=== PATIENT | male | born 1945 | race Caucasian/White ===

== ENCOUNTER 2016-12-19 08:24 | Day surgery (SDC) | payer MEDICARE, BC ==
[2016-12-19] MEDS ORDERED: Propofol 200 MG/20 ML SDV ONE (09:06)
[2016-12-19] MEDS ORDERED: fentaNYL 100 MCG/2 ML SDV ONE (09:06)
[2016-12-19] MEDS ORDERED: Lactated Ringers 1,000 ML IV SCH (09:45)
[2016-12-19 12:15] VITALS: BP 121/87
--- NOTE | 2016-12-20 12:30 | OR ---
DATE OF PROCEDURE: 12/19/2016 PREOPERATIVE DIAGNOSIS: History of colon polyps. POSTOPERATIVE DIAGNOSES: Diverticulosis, history of colon polyps. PROCEDURE: Colonoscopy to the cecum. SURGEON: Satish Holly MD. ANESTHESIA: IV anesthesia with monitored anesthesia care. INDICATION: This 71-year-old white male is referred for a colonoscopy. He has a history of colon polyps. His last colonoscopic exam was performed in the [facility] about 5 years ago. I counseled him for a colonoscopy with possible biopsy and/or polypectomy including risks and alternatives, and he gave his informed consent to proceed. DESCRIPTION OF PROCEDURE: The patient was placed in the left lateral decubitus position. IV anesthesia was administered by the Anesthesia Service. Time-out was held. A rectal exam was performed, which was unremarkable. The flexible video Olympus colonoscope was introduced through his anus, up his rectum, and out his colon all the way to the cecum. En route, we saw multiple left-sided diverticula. There was no bleeding or inflammation associated with any of them. Once the cecum was reached, the scope was slowly withdrawn, examining the mucosa throughout. No additional mucosal abnormalities were noted. No neoplastic lesions were seen. The scope was retroflexed in the rectum with the distal rectum appearing unremarkable. The scope was straightened and removed. He tolerated the procedure well. Satish Holly MD /[id number] MTDD
== END 2016-12-19 12:18 | disposition home or self-care (01) ==
LOC: JP.SDS 08:24
PROVIDERS: ATTEND Surgery
DX: Z12.11 Encounter for screening for malignant neoplasm of colon (principal); K57.30 Diverticulosis of large intestine without perforation or abscess without bleeding; Z86.010 Personal history of colon polyps; Z88.0 Allergy status to penicillin
CPT/HCPCS: G0105; J2704; J3010; J7120

== ENCOUNTER 2019-09-28 07:24 | Day surgery (SDC) | payer MEDICARE, OTHER ==
[~2019-09-28 07:24] MED LIST: Bupivacaine 0.5% 50 ML MDV ONE; Lidocaine 1% with EPINEPHrine 1:100,000 50 ML MDV ONE; Midazolam 1 MG/ML 2 ML SDV ONE; Propofol 200 MG/20 ML SDV ONE; fentaNYL 100 MCG/2 ML SDV ONE
[2019-09-28] MEDS ORDERED: Sodium Chloride 0.9% 1,000 ML IV SCH (08:00)
[2019-09-28] MEDS ORDERED: ceFAZolin 2 GM in Premix Bag 1 BAG IV ONE (08:00)
[2019-09-28] MEDS ORDERED: Propofol 200 MG/20 ML SDV ONE (08:47)
[2019-09-28 10:22] VITALS: BP 120/60; PULSE 61
--- NOTE | 2019-09-28 12:39 | OR ---
DATE OF PROCEDURE: 09/28/2019 SURGEON: Micky Roe MD PROCEDURES: 1. 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 2. Intermediate closure, same dimensions (72835). COMPLICATIONS: None. FREELANCE WRITER: None. ANESTHESIA: MAC/local. RISKS: Risks, benefits, alternatives, and limitations including, but not limited to infection, bleeding, and requirement for reoperation, false-positives, false-negatives, and other risks not listed here were explained to the patient, who wished to proceed. PREOPERATIVE DIAGNOSIS: Squamous cell carcinoma of back. POSTOPERATIVE DIAGNOSIS: Squamous cell carcinoma of back. PROCEDURE IN DETAIL: The patient was placed in prone position. The lesion was identified preoperatively by the patient and family. The purple nu was identified. Purple signature was identified and the elliptical incision was performed to the size as above. This was performed with a 15 blade. Electrocautery was then used to carry down to the fascial level. This was marked with a single stitch superior, double stitch left prior to removal from the body. This was then removed. Sent to pathology. Irrigation was then performed. Minimal bleeding was controlled by electrocautery. Superior and inferior flaps were then created using electrocautery. These were then further mobilized and then anastomosed with 3-0 Vicryl sutures. Two layers of 3-0 Vicryl were performed. The skin was then closed with tommie and dressings were applied. The patient tolerated the procedure well. Micky Roe MD /[id number]
== END 2019-09-28 11:04 | disposition home or self-care (01) ==
LOC: JP.SDS 07:24
PROVIDERS: ATTEND Surgery
DX: C44.529 Squamous cell carcinoma of skin of other part of trunk (principal)
CPT/HCPCS: 88305; J0690; J2250; J2704; J3010; J3490; J7030

== ENCOUNTER 2020-01-21 09:43 | Inpatient (IN) | payer MEDICARE, OTHER ==
--- NOTE | 2020-01-21 10:03 | EDM.PDOC ---
ED HPI GENERAL MEDICAL PROBLEM - General Chief Complaint: Respiratory Problem Stated Complaint: positive covid Time Seen by Provider: 01/21/20 10:00 Source of Information: Reports: Patient History Limitations: Reports: No Limitations - History of Present Illness INITIAL COMMENTS - FREE TEXT/NARRATIVE: 74-year-old, usually healthy male has been struggling with Covid symptoms for the past 2 weeks. He tested positive on January 04, he and his have been trying to "ride it out" at home and she has markedly improved but he has become weaker, more short of breath, has had some diarrhea, and has gotten to the point where he cannot get across 1 room or stand up while he is in the shower. This morning when he woke up he checked his O2 saturations and they were in the high 70s and low 80s. They did improve with some deep breaths but his 's saturations were in the 90s so he got concerned. He has a tight cough but no productive sputum, no real pain. He arrived to the emergency room extremely weak with O2 saturations 88% without O2. Onset: Gradual Duration: Week(s): (2 weeks) Associated Symptoms: Reports: Cough, Loss of Appetite, Malaise, Shortness of Breath (Especially with any activity), Weakness. Denies: Confusion, Chest Pain - Related Data Allergies Allergy/AdvReac Type Severity Reaction Status Date / Time Penicillins Allergy Rash Verified 01/21/20 09:52 Home Meds: Home Meds Cholecalciferol (Vitamin D3) [Vitamin D3] 0.025 mcg PO DAILY 12/19/16 [History] Magnesium Oxide [Magnesium] 400 mg PO DAILY 09/24/19 [History] Past Medical History HEENT History: Reports: Allergic Rhinitis, Impaired Vision Gastrointestinal History: Reports: Colon Polyp Genitourinary History: Reports: Renal Calculus Musculoskeletal History: Reports: Fracture, Other (See Below) Other Musculoskeletal History: fx clavicle as child Neurological History: Reports: Concussion, Migraines Oncologic (Cancer) History: Reports: Squamous Cell Carcinoma - Infectious Disease History Infectious Disease History: Reports: Chicken Pox - Past Surgical History GI Surgical History: Reports: Colonoscopy, Hernia, Abdominal Musculoskeletal Surgical History: Reports: Shoulder Surgery Social & Family History - Caffeine Use Caffeine Use: Reports: Coffee ED ROS GENERAL - Review of Systems Review Of Systems: See Below Constitutional: Reports: Fever, Chills, Malaise, Decreased Appetite HEENT: Denies: Throat Pain Respiratory: Reports: Shortness of Breath, Cough. Denies: Sputum Cardiovascular: Denies: Palpitations Endocrine: Reports: Fatigue (Extreme fatigue is his main complaint) GI/Abdominal: Reports: Diarrhea : Reports: No Symptoms Musculoskeletal: Reports: No Symptoms Skin: Reports: No Symptoms Neurological: Reports: Dizziness, Weakness. Denies: Headache ED EXAM, GENERAL - Physical Exam Exam: See Below Exam Limited By: No Limitations General Appearance: Alert, No Apparent Distress, Other (Patient does not look distressed but does look extremely weak, very flat affect) Eye Exam: Bilateral Eye: EOMI, PERRL Throat/Mouth: Normal Inspection Head: Atraumatic Respiratory/Chest: No Respiratory Distress, Rhonchi (Bibasilar rhonchi are he delbert, a few scattered expiratory wheezes) Cardiovascular: Regular Rate, Rhythm GI/Abdominal: Normal Bowel Sounds, Soft, Non-Tender Extremities: Normal Inspection. No: Pedal Edema Neurological: Alert, Oriented Psychiatric: Depressed Mood, Flat Affect Skin Exam: Warm, Dry Course - Vital Signs Last Recorded V/S: Last Vital Signs Temp 101.2 F H 01/21/20 13:23 Pulse 90 01/21/20 12:49 Resp 20 01/21/20 12:49 BP 130/62 01/21/20 12:49 Pulse Ox 94 L 01/21/20 13:00 - Orders/Labs/Meds Orders: Active Orders 24 hr Category Date Time Status Patient Status [ADT] Routine ADT 01/21/20 11:22 Active Ambulate [RC] QID Care 01/21/20 11:21 Active Cardiac Monitoring [RC] .As Directed Care 01/21/20 11:24 Active Intake and Output [RC] QSHIFT Care 01/21/20 11:24 Active Oxygen Therapy [RC] PRN Care 01/21/20 11:22 Active Positioning, Patient [RC] ASDIRECTED Care 01/21/20 11:26 Active Pulse Oximetry [RC] CONTINUOUS Care 01/21/20 11:24 Active Up to Chair [RC] QID Care 01/21/20 11:21 Active VTE/DVT Education [RC] Per Unit Routine Care 01/21/20 11:22 Active Verify Patient Consent Obtain [RC] ASDIRECTED Care 01/21/20 11:22 Active PT Evaluation and Treatment [CONS] Routine Cons 01/21/20 11:21 Active Regular Diet [DIET] Diet 01/21/20 Lunch Active C-REACTIVE PROTEIN [CHEM] DAILY Lab 01/22/20 11:30 Ordered C-REACTIVE PROTEIN [CHEM] DAILY Lab 01/23/20 11:30 Ordered C-REACTIVE PROTEIN [CHEM] DAILY Lab 01/24/20 11:30 Ordered C-REACTIVE PROTEIN [CHEM] DAILY Lab 01/25/20 11:30 Ordered C-REACTIVE PROTEIN [CHEM] DAILY Lab 01/26/20 11:30 Ordered CBC WITH AUTO DIFF [HEME] DAILY Lab 01/22/20 11:30 Ordered CBC WITH AUTO DIFF [HEME] DAILY Lab 01/23/20 11:30 Ordered CBC WITH AUTO DIFF [HEME] DAILY Lab 01/24/20 11:30 Ordered CBC WITH AUTO DIFF [HEME] DAILY Lab 01/25/20 11:30 Ordered CBC WITH AUTO DIFF [HEME] DAILY Lab 01/26/20 11:30 Ordered COMPREHENSIVE METABOLIC PN,CMP [CHEM] DAILY Lab 01/22/20 11:30 Ordered COMPREHENSIVE METABOLIC PN,CMP [CHEM] DAILY Lab 01/23/20 11:30 Ordered COMPREHENSIVE METABOLIC PN,CMP [CHEM] DAILY Lab 01/24/20 11:30 Ordered COMPREHENSIVE METABOLIC PN,CMP [CHEM] DAILY Lab 01/25/20 11:30 Ordered COMPREHENSIVE METABOLIC PN,CMP [CHEM] DAILY Lab 01/26/20 11:30 Ordered CULTURE BLOOD [BC] Urgent Lab 01/21/20 11:50 Received CULTURE BLOOD [BC] Urgent Lab 01/21/20 12:05 Received FERRITIN [CHEM] DAILY Lab 01/22/20 11:21 Ordered FERRITIN [CHEM] DAILY Lab 01/23/20 11:21 Ordered FERRITIN [CHEM] DAILY Lab 01/24/20 11:21 Ordered FERRITIN [CHEM] DAILY Lab 01/25/20 11:21 Ordered FERRITIN [CHEM] DAILY Lab 01/26/20 11:21 Ordered PROCALCITONIN [CHEM] DAILY Lab 01/22/20 11:21 Ordered PROCALCITONIN [CHEM] DAILY Lab 01/23/20 11:21 Ordered PROCALCITONIN [CHEM] DAILY Lab 01/24/20 11:21 Ordered PROCALCITONIN [CHEM] DAILY Lab 01/25/20 11:21 Ordered PROCALCITONIN [CHEM] DAILY Lab 01/26/20 11:21 Ordered Acetaminophen [TylenoL] Med 01/21/20 11:21 Active 650 mg PO Q4H PRN Docusate Sodium [Colace] Med 01/21/20 11:21 Active 100 mg PO BID PRN Enoxaparin [Lovenox] Med 01/21/20 11:30 Active 40 mg SUBCUT DAILY Ondansetron [Zofran ODT] Med 01/21/20 11:21 Active 4 mg PO Q6H PRN Remdesivir (Eua) [Remdesivir (EUA)] 100 mg Med 01/22/20 12:00 Active Sodium Chloride 0.9% [Normal Saline] 100 ml IV Q24H Sodium Chloride 0.9% [Normal Saline] 250 ml Med 01/21/20 11:30 Active IV ASDIRECTED dexAMETHasone [Decadron] Med 01/21/20 11:30 Active 6 mg IVPUSH DAILY Blood Culture x2 Reflex Set [OM.PC] Stat Ot 01/21/20 11:26 Ordered Isolation [COMM] Routine Oth 01/21/20 11:28 Ordered Isolation [COMM] Stat Oth 01/21/20 11:22 Ordered Resuscitation Status Routine Resus Stat 01/21/20 11:21 Ordered Medication Orders Acetaminophen (Tylenol) 650 mg PO Q4H PRN PRN Reason: Fever Greater Than 101 Last Admin: 01/21/20 13:23 Dose: 650 mg Documented by: JUICE Dexamethasone (Decadron) 6 mg IVPUSH DAILY [facility] Stop: 01/30/20 09:01 Last Admin: 01/21/20 12:05 Dose: 6 mg Documented by: OCTAVIA Docusate Sodium (Colace) 100 mg PO BID PRN PRN Reason: Constipation Enoxaparin Sodium (Lovenox) 40 mg SUBCUT DAILY [facility] Last Admin: 01/21/20 12:09 Dose: 40 mg Documented by: OCTAVIA Remdesivir 100 mg/ Sodium (Chloride) 100 mls @ 100 mls/hr IV Q24H [facility] Stop: 01/25/20 12:59 Sodium Chloride (Normal Saline) 250 mls @ 20 mls/hr IV ASDIRECTED JEAN MARIE Ondansetron HCl (Zofran Odt) 4 mg PO Q6H PRN PRN Reason: Nausea able to take PO Labs: Laboratory Tests 01/21/20 01/21/20 01/21/20 Range/Units 10:51 10:51 10:51 WBC 7.2 (4.5-11.0) K/uL RBC 5.00 (4.30-5.90) M/uL Hgb 15.3 H (12.0-15.0) g/dL Hct 45.4 (40.0-54.0) % MCV 91 (80-98) fL MCH 31 (27-31) pg MCHC 34 (32-36) % Plt Count 262 (150-400) K/uL Neut % (Auto) 81 H (36-66) % Lymph % (Auto) 5 L (24-44) % [place] % (Auto) 13 H (2-6) % Eos % (Auto) 0 L (2-4) % Baso % (Auto) 1 (0-1) % D-Dimer, Quantitative 1070.58 H (0.0-500.0) ng/mL Sodium 129 L (140-148) mmol/L Potassium 3.9 (3.6-5.2) mmol/L Chloride 93 L (100-108) mmol/L Carbon Dioxide 26 (21-32) mmol/L Anion Gap 13.9 (5.0-14.0) mmol/L BUN 16 (7-18) mg/dL Creatinine 1.2 (0.8-1.3) mg/dL Est Cr Clr Drug Dosing 56.98 mL/min Estimated GFR (MDRD) 59 L (>60) Glucose 101 (74-106) mg/dL Lactic Acid (0.4-2.0) mmol/L Calcium 8.6 (8.5-10.1) mg/dL Ferritin 2011 H (8-388) ng/ml Total Bilirubin 0.6 (0.2-1.0) mg/dL AST 94 H (15-37) U/L ALT 131 H (12-78) U/L Alkaline Phosphatase 58 (46-116) U/L C-Reactive Protein 12.29 H (0.0-0.3) mg/dL Total Protein 7.2 (6.4-8.2) g/dL Albumin 2.5 L (3.4-5.0) g/dL Globulin 4.7 H (2.3-3.5) g/dL Albumin/Globulin Ratio 0.5 L (1.2-2.2) 01/21/20 Range/Units 11:21 WBC (4.5-11.0) K/uL RBC (4.30-5.90) M/uL Hgb (12.0-15.0) g/dL Hct (40.0-54.0) % MCV (80-98) fL MCH (27-31) pg MCHC (32-36) % Plt Count (150-400) K/uL Neut % (Auto) (36-66) % Lymph % (Auto) (24-44) % [place] % (Auto) (2-6) % Eos % (Auto) (2-4) % Baso % (Auto) (0-1) % D-Dimer, Quantitative (0.0-500.0) ng/mL Sodium (140-148) mmol/L Potassium (3.6-5.2) mmol/L Chloride (100-108) mmol/L Carbon Dioxide (21-32) mmol/L Anion Gap (5.0-14.0) mmol/L BUN (7-18) mg/dL Creatinine (0.8-1.3) mg/dL Est Cr Clr Drug Dosing mL/min Estimated GFR (MDRD) (>60) Glucose (74-106) mg/dL Lactic Acid 1.4 (0.4-2.0) mmol/L Calcium (8.5-10.1) mg/dL Ferritin (8-388) ng/ml Total Bilirubin (0.2-1.0) mg/dL AST (15-37) U/L ALT (12-78) U/L Alkaline Phosphatase (46-116) U/L C-Reactive Protein (0.0-0.3) mg/dL Total Protein (6.4-8.2) g/dL Albumin (3.4-5.0) g/dL Globulin (2.3-3.5) g/dL Albumin/Globulin Ratio (1.2-2.2) Meds: Medications Generic Name Dose Route Start Last Admin Trade Name Freq PRN Reason Stop Dose Admin Acetaminophen 650 mg 01/21/20 11:21 01/21/20 13:23 Tylenol PO 650 mg Q4H PRN Administration Fever Greater Than 101 Dexamethasone 6 mg 01/21/20 11:30 01/21/20 12:05 Decadron IVPUSH 01/30/20 09:01 6 mg DAILY JEAN MARIE Administration Docusate Sodium 100 mg 01/21/20 11:21 Colace PO BID PRN Constipation Enoxaparin Sodium 40 mg 01/21/20 11:30 01/21/20 12:09 Lovenox SUBCUT 40 mg DAILY JEAN MARIE Administration Remdesivir 100 mg/ Sodium 100 mls @ 100 mls/hr 01/22/20 12:00 Chloride IV 01/25/20 12:59 Q24H JEAN MARIE Sodium Chloride 250 mls @ 20 mls/hr 01/21/20 11:30 Normal Saline IV ASDIRECTED JEAN MARIE Ondansetron HCl 4 mg 01/21/20 11:21 Zofran Odt PO Q6H PRN Nausea able to take PO Discontinued Medications Generic Name Dose Route Start Last Admin Trade Name Freq PRN Reason Stop Dose Admin Diphenhydramine HCl 25 mg 01/21/20 11:21 Benadryl IVPUSH 01/21/20 11:22 ONCALL ONE Remdesivir 200 mg/ Sodium 250 mls @ 250 mls/hr 01/21/20 12:00 01/21/20 12:12 Chloride IV 01/21/20 12:59 250 mls/hr ONETIME ONE Administration - Re-Assessments/Exams Free Text/Narrative Re-Assessment/Exam: 01/21/20 10:20 Patient has known Covid with worsening symptoms and now is becoming hypoxic at rest. CBC, CMP, CRP, D-dimer and ferritin were obtained along with a 1 view chest x-ray. 01/21/20 11:24 Chest x-ray shows bilateral basilar infiltrates, white count and hemoglobin are normal. The rest of his left still pending, I discussed his case with Dr. Quispe and he agreed to admit him onto the Covid unit and will order treatment according to lab results. Departure - Departure Time of Disposition: 12:50 Disposition: Admitted As Inpatient 67 Clinical Impression: Pneumonia due to COVID-19 virus, Weakness generalized, Hypoxemia - Discharge Information Sepsis Event Note (ED) - Focused Exam Vital Signs: Vital Signs Temp Pulse Resp BP Pulse Ox 01/21/20 10:13 101 H 94 L 01/21/20 10:04 101 H 89 L 01/21/20 09:59 100.6 F 100 20 137/70 92 L
[2020-01-21] MEDS ORDERED: Docusate Sodium 100 MG Cap PO PRN (11:21)
[2020-01-21] MEDS ORDERED: Ondansetron 4 MG Tab.DIS PO PRN (11:21)
[2020-01-21] MEDS ORDERED: diphenhydrAMINE 50 MG/ML SDV IVPUSH ONE ×2 (11:21→15:30)
--- NOTE | 2020-01-21 11:21 | CR ---
CHEST: Upright AP 01/31/2020 at 10:40 AM CLINICAL HISTORY:Worsening covid Symptoms COMPARISON:None FINDINGS: There is some vague patchy infiltrate in both lower lung crespo. Heart size and pulmonary vascularity are normal. There are no effusions Impression: Vague opacification in both lower lung crespo is suspect for pneumonitis.
[2020-01-21] MEDS ORDERED: Sodium Chloride 0.9% 250 ML IV SCH (11:30)
[2020-01-21] MEDS: Dexamethasone 4 MG/ML SDV IVPUSH SCH (12:05)
[2020-01-21] MEDS: Enoxaparin 40 MG/0.4 ML Syringe SUBCUT SCH (12:09)
[2020-01-21] MEDS: Acetaminophen 325 MG Tab PO PRN (13:23)
--- NOTE | 2020-01-21 13:44 | PCM.HP.2 ---
H&P History of Present Illness - General Date of Service: 01/21/20 Admit Problem/Dx: Admission Diagnosis/Problem 1. Acute COVID 19 PNA 2. Acute respiratory failure 3. Weakness 4. Fever Source of Information: Patient History Limitations: Reports: No Limitations - History of Present Illness Initial Comments - Free Text/Narative: Praveen Whalen is a 74 yo male admitted to [facility] service on 21 January 2020 for profound weakness in the setting of acute COVID 19 infection. The patient and his , both, have been diagnosed and have quarantined themselves over the past 14 days. While his has improved substantially, the patient himself has yet to do so. He has, rather, become progressively weaker, more dyspneic, and has had considerable cough with increased respiratory effort or talking. He has had fevers as high as 102.9 F. He has no other medical issues [employer] that are noted. No history of HTN, CAD, COPD, DM, obesity are noted. The patient does note, in addition to the above, some occasional lo ose stool as well as loss of taste and/or smell. No other issues are noted at time of admission. - Related Data Allergies/Adverse Reactions: Allergies Allergy/AdvReac Type Severity Reaction Status Date / Time Penicillins Allergy Rash Verified 01/21/20 09:52 Home Medications: Home Meds Cholecalciferol (Vitamin D3) [Vitamin D3] 0.025 mcg PO DAILY 12/19/16 [History] Magnesium Oxide [Magnesium] 400 mg PO DAILY 09/24/19 [History] Past Medical History HEENT History: Reports: Allergic Rhinitis, Impaired Vision Gastrointestinal History: Reports: Colon Polyp Genitourinary History: Reports: Renal Calculus Musculoskeletal History: Reports: Fracture, Other (See Below) Other Musculoskeletal History: fx clavicle as child Neurological History: Reports: Concussion, Migraines Oncologic (Cancer) History: Reports: Squamous Cell Carcinoma - Infectious Disease History Infectious Disease History: Reports: Chicken Pox - Past Surgical History GI Surgical History: Reports: Colonoscopy, Hernia, Abdominal Musculoskeletal Surgical History: Reports: Shoulder Surgery Social & Family History - Tobacco Use Tobacco Use Status *Q: Never Tobacco User Second Hand Smoke Exposure: No - Caffeine Use Caffeine Use: Reports: Coffee - Recreational Drug Use Recreational Drug Use: No H&P Review of Systems - Review of Systems: Review Of Systems: Comprehensive ROS is negative, except as noted in HPI. Exam - Exam Exam: See Below - Vital Signs Vital Signs: Last Vital Signs Temp 101.2 F H 01/21/20 13:23 Pulse 90 01/21/20 12:49 Resp 20 01/21/20 12:49 BP 130/62 01/21/20 12:49 Pulse Ox 94 L 01/21/20 13:00 Weight: 167 lb - Exam Quality Assessment: Supplemental Oxygen, DVT Prophylaxis. No: Central Line/PICC, Urinary Catheter General: Alert, Oriented, Cooperative, Moderate Distress HEENT: PERRLA, EOMI Lungs: Crackles (Noted bilaterally L>>R with crackles noted in the RLL, RML, LLL and about half of the JESUS) Cardiovascular: Regular Rate, Regular Rhythm, Normal S1, Normal S2. No: Systolic Murmur, Diastolic Murmur GI/Abdominal Exam: Normal Bowel Sounds, Soft, Non-Tender, No Distention, No Abnormal Bruit, No Mass Back Exam: Normal Inspection Extremities: Normal Inspection, Normal Range of Motion, Non-Tender, No Pedal Edema Peripheral Pulses: 4+: Posterior Tibial (L), Posterior Tibial (R), Dorsalis Pedis (L), Dorsalis Pedis (R) Skin: Warm, Dry, Intact Neurological: Cranial Nerves Intact, Reflexes Equal Bilateral, Strength Equal Bilateral, Normal Speech, Normal Tone, Sensation Intact Neuro Extensive - Mental Status: Alert, Oriented x3, Normal Mood/Affect, Normal Cognition, Memory Intact Neuro Extensive - Motor, Sensory, Reflexes: CN II-XII Intact, Normal Reflexes DTR: 2+: Patella (L), Patella (R) Psychiatric: Alert, Normal Affect, Normal Mood - Patient Data Lab Results Last 24 hrs: Laboratory Results - last 24 hr 01/21/20 01/21/20 01/21/20 Range/Units 10:51 10:51 10:51 WBC 7.2 (4.5-11.0) K/uL RBC 5.00 (4.30-5.90) M/uL Hgb 15.3 H (12.0-15.0) g/dL Hct 45.4 (40.0-54.0) % MCV 91 (80-98) fL MCH 31 (27-31) pg MCHC 34 (32-36) % Plt Count 262 (150-400) K/uL Neut % (Auto) 81 H (36-66) % Lymph % (Auto) 5 L (24-44) % [place] % (Auto) 13 H (2-6) % Eos % (Auto) 0 L (2-4) % Baso % (Auto) 1 (0-1) % D-Dimer, Quantitative 1070.58 H (0.0-500.0) ng/mL Sodium 129 L (140-148) mmol/L Potassium 3.9 (3.6-5.2) mmol/L Chloride 93 L (100-108) mmol/L Carbon Dioxide 26 (21-32) mmol/L Anion Gap 13.9 (5.0-14.0) mmol/L BUN 16 (7-18) mg/dL Creatinine 1.2 (0.8-1.3) mg/dL Est Cr Clr Drug Dosing 56.98 mL/min Estimated GFR (MDRD) 59 L (>60) Glucose 101 (74-106) mg/dL Lactic Acid (0.4-2.0) mmol/L Calcium 8.6 (8.5-10.1) mg/dL Ferritin 2011 H (8-388) ng/ml Total Bilirubin 0.6 (0.2-1.0) mg/dL AST 94 H (15-37) U/L ALT 131 H (12-78) U/L Alkaline Phosphatase 58 (46-116) U/L C-Reactive Protein 12.29 H (0.0-0.3) mg/dL Total Protein 7.2 (6.4-8.2) g/dL Albumin 2.5 L (3.4-5.0) g/dL Globulin 4.7 H (2.3-3.5) g/dL Albumin/Globulin Ratio 0.5 L (1.2-2.2) 01/21/20 Range/Units 11:21 WBC (4.5-11.0) K/uL RBC (4.30-5.90) M/uL Hgb (12.0-15.0) g/dL Hct (40.0-54.0) % MCV (80-98) fL MCH (27-31) pg MCHC (32-36) % Plt Count (150-400) K/uL Neut % (Auto) (36-66) % Lymph % (Auto) (24-44) % [place] % (Auto) (2-6) % Eos % (Auto) (2-4) % Baso % (Auto) (0-1) % D-Dimer, Quantitative (0.0-500.0) ng/mL Sodium (140-148) mmol/L Potassium (3.6-5.2) mmol/L Chloride (100-108) mmol/L Carbon Dioxide (21-32) mmol/L Anion Gap (5.0-14.0) mmol/L BUN (7-18) mg/dL Creatinine (0.8-1.3) mg/dL Est Cr Clr Drug Dosing mL/min Estimated GFR (MDRD) (>60) Glucose (74-106) mg/dL Lactic Acid 1.4 (0.4-2.0) mmol/L Calcium (8.5-10.1) mg/dL Ferritin (8-388) ng/ml Total Bilirubin (0.2-1.0) mg/dL AST (15-37) U/L ALT (12-78) U/L Alkaline Phosphatase (46-116) U/L C-Reactive Protein (0.0-0.3) mg/dL Total Protein (6.4-8.2) g/dL Albumin (3.4-5.0) g/dL Globulin (2.3-3.5) g/dL Albumin/Globulin Ratio (1.2-2.2) Result Diagrams: 01/21/20 10:51 01/21/20 10:51 Joon Results Last 24 hrs: Microbiology 01/21/20 12:50 Influenza Type A Antigen Screen - Final Nasopharyngeal Swab - Nare, Unspecified NEGATIVE INFLUENZA A VIRUS AG REFERENCE RANGE: NEGATIVE Influenza Type B Antigen Screen - Final NEGATIVE INFLUENZA B VIRUS AG REFERENCE RANGE: NEGATIVE Sepsis Event Note - Evaluation Sepsis Screening Result: Possible Sepsis Risk - Focused Exam Vital Signs: Vital Signs Temp Temp Pulse Resp BP Pulse Ox 01/21/20 13:23 101.2 F H 01/21/20 13:00 94 L 01/21/20 12:49 101.2 F H 90 20 130/62 92 L 01/21/20 12:05 97 121/67 01/21/20 11:32 98 128/56 L 94 L 01/21/20 10:13 101 H 94 L 01/21/20 10:04 101 H 89 L 01/21/20 09:59 100.6 F 100 20 137/70 92 L Problem List Initiated/Reviewed/Updated: Yes Orders Last 24hrs: Active Orders 24 hr Category Date Time Status Patient Status [ADT] Routine ADT 01/21/20 11:22 Active Patient Status [ADT] Routine ADT 01/21/20 11:23 Active Ambulate [RC] QID Care 01/21/20 11:21 Active Cardiac Monitoring [RC] .As Directed Care 01/21/20 11:24 Active Intake and Output [RC] QSHIFT Care 01/21/20 11:24 Active Oxygen Therapy [RC] PRN Care 01/21/20 11:22 Active Positioning, Patient [RC] ASDIRECTED Care 01/21/20 11:26 Active Pulse Oximetry [RC] CONTINUOUS Care 01/21/20 11:24 Active Up to Chair [RC] QID Care 01/21/20 11:21 Active VTE/DVT Education [RC] Per Unit Routine Care 01/21/20 11:22 Active Verify Patient Consent Obtain [RC] ASDIRECTED Care 01/21/20 11:22 Active PT Evaluation and Treatment [CONS] Routine Cons 01/21/20 11:21 Active Regular Diet [DIET] Diet 01/21/20 Lunch Active C-REACTIVE PROTEIN [CHEM] DAILY Lab 01/22/20 11:30 Ordered C-REACTIVE PROTEIN [CHEM] DAILY Lab 01/23/20 11:30 Ordered C-REACTIVE PROTEIN [CHEM] DAILY Lab 01/24/20 11:30 Ordered C-REACTIVE PROTEIN [CHEM] DAILY Lab 01/25/20 11:30 Ordered C-REACTIVE PROTEIN [CHEM] DAILY Lab 01/26/20 11:30 Ordered CBC WITH AUTO DIFF [HEME] DAILY Lab 01/22/20 11:30 Ordered CBC WITH AUTO DIFF [HEME] DAILY Lab 01/23/20 11:30 Ordered CBC WITH AUTO DIFF [HEME] DAILY Lab 01/24/20 11:30 Ordered CBC WITH AUTO DIFF [HEME] DAILY Lab 01/25/20 11:30 Ordered CBC WITH AUTO DIFF [HEME] DAILY Lab 01/26/20 11:30 Ordered COMPREHENSIVE METABOLIC PN,CMP [CHEM] DAILY Lab 01/22/20 11:30 Ordered COMPREHENSIVE METABOLIC PN,CMP [CHEM] DAILY Lab 01/23/20 11:30 Ordered COMPREHENSIVE METABOLIC PN,CMP [CHEM] DAILY Lab 01/24/20 11:30 Ordered COMPREHENSIVE METABOLIC PN,CMP [CHEM] DAILY Lab 01/25/20 11:30 Ordered COMPREHENSIVE METABOLIC PN,CMP [CHEM] DAILY Lab 01/26/20 11:30 Ordered CULTURE BLOOD [BC] Urgent Lab 01/21/20 11:50 Received CULTURE BLOOD [BC] Urgent Lab 01/21/20 12:05 Received FERRITIN [CHEM] DAILY Lab 01/22/20 11:21 Ordered FERRITIN [CHEM] DAILY Lab 01/23/20 11:21 Ordered FERRITIN [CHEM] DAILY Lab 01/24/20 11:21 Ordered FERRITIN [CHEM] DAILY Lab 01/25/20 11:21 Ordered FERRITIN [CHEM] DAILY Lab 01/26/20 11:21 Ordered PROCALCITONIN [CHEM] DAILY Lab 01/22/20 11:21 Ordered PROCALCITONIN [CHEM] DAILY Lab 01/23/20 11:21 Ordered PROCALCITONIN [CHEM] DAILY Lab 01/24/20 11:21 Ordered PROCALCITONIN [CHEM] DAILY Lab 01/25/20 11:21 Ordered PROCALCITONIN [CHEM] DAILY Lab 01/26/20 11:21 Ordered Acetaminophen [TylenoL] Med 01/21/20 11:21 Active 650 mg PO Q4H PRN Docusate Sodium [Colace] Med 01/21/20 11:21 Active 100 mg PO BID PRN Enoxaparin [Lovenox] Med 01/21/20 11:30 Active 40 mg SUBCUT DAILY Ondansetron [Zofran ODT] Med 01/21/20 11:21 Active 4 mg PO Q6H PRN Remdesivir (Eua) [Remdesivir (EUA)] 100 mg Med 01/22/20 12:00 Active Sodium Chloride 0.9% [Normal Saline] 100 ml IV Q24H Sodium Chloride 0.9% [Normal Saline] 250 ml Med 01/21/20 11:30 Active IV ASDIRECTED dexAMETHasone [Decadron] Med 01/21/20 11:30 Active 6 mg IVPUSH DAILY Blood Culture x2 Reflex Set [OM.PC] Stat Oth 01/21/20 11:26 Ordered Isolation [COMM] Routine Oth 01/21/20 11:28 Ordered Isolation [COMM] Stat Oth 01/21/20 11:22 Ordered Resuscitation Status Routine Resus Stat 01/21/20 11:21 Ordered Medication Orders Acetaminophen (Tylenol) 650 mg PO Q4H PRN PRN Reason: Fever Greater Than 101 Last Admin: 01/21/20 13:23 Dose: 650 mg Documented by: JUICE Dexamethasone (Decadron) 6 mg IVPUSH DAILY [facility] Stop: 01/30/20 09:01 Last Admin: 01/21/20 12:05 Dose: 6 mg Documented by: OCTAVIA Docusate Sodium (Colace) 100 mg PO BID PRN PRN Reason: Constipation Enoxaparin Sodium (Lovenox) 40 mg SUBCUT DAILY [facility] Last Admin: 01/21/20 12:09 Dose: 40 mg Documented by: OCTAVIA Remdesivir 100 mg/ Sodium (Chloride) 100 mls @ 100 mls/hr IV Q24H [facility] Stop: 01/25/20 12:59 Sodium Chloride (Normal Saline) 250 mls @ 20 mls/hr IV ASDIRECTED [facility] Ondansetron HCl (Zofran Odt) 4 mg PO Q6H PRN PRN Reason: Nausea able to take PO Assessment/Plan Comment:: Assessment and Plan: 1. HEENT Patient has no active issues. The noted anosmia and loss of taste are likely c/w the COVID 19 disease course. 2. Cardiac No prior history of cardiac issue noted 3. Respiratory Acute respiratory failure Patient presented with dyspnea, hypoxia requiring supplemental oxygen. The patient has responded reasonably well to 1.5-2L NC oxygen. He continues to be dyspneic and has a significant cough. COVID 19 PNA Patient has lab proved COVID 19 and symptomatically presents as such. Patient is a FULL CODE but does not wish to be kept alive indefinitely if he decompensates and requires intubation. We did obtain consents for Remdesivir, convalescent plasma -Dexamethasone 6 mg IV q day x 5 days (day 1) -Remdesivir 200 mg load followed by 100 mg daily infusion (loaded today - day 03/22) -Convalescent serum 1 unit daily (Day 1) -Daily CBC, CMP, CRP, Ferritin, D-dimer, procalcitonin -Will start IV atbx for CAP coverage as well (orders to follow) -Oxygen to keep SpO2 between 90-96% -BCx pending -Discussed contingency plan for transfer if patient deteriorates. 4. Renal/F/E/N Patient stable. Caution with IV fluid loads. Advance po as tolerated -Daily I/O -Caution with fluids -ADAT 5. Gastrointestinal No issues but for intermittent loose stools likely d/t COVID sxs 6. Neuromusculoskeletal Notes profound, generalized weakness which I think is likely d/t COVID 19 -PT/OT -Case management to begin placement process 7. Psychiatric/Mental Health No active issues 8. Infectious Disease See above Disposition: Likely to TCU for acute rehab Enrique Quispe M.D. Hospitalist 21 January 2020 - Mortality Measure Prognosis:: Good
[2020-01-22] MEDS ORDERED: LORazepam 0.5 MG Tab PO PRN (01:07)
[2020-01-22] MEDS: Melatonin 3 MG Tab PO PRN (01:31)
[2020-01-22] MEDS: Enoxaparin 40 MG/0.4 ML Syringe SUBCUT SCH (09:28)
[2020-01-22] MEDS: Dexamethasone 4 MG/ML SDV IVPUSH SCH (09:29)
[2020-01-22] MEDS: REMDESIVIR (EUA) 100 MG in Sodium Chloride 0.9% 100 ML IV SCH (12:32)
--- NOTE | 2020-01-22 14:40 | PCM.PN ---
- General Info Date of Service: 01/22/20 Admission Dx/Problem (Free Text): 1. Hypoxia 2. Bilateral PNA 3. Acute COVID 19 infection Subjective Update: [facility] Patient now requiring 6 L NC up from 1.5-2L on day of admission Patient states he is subjectively feeling better. No other concerns are elaborated from RN team Functional Status: Reports: Pain Controlled, Tolerating Diet - Review of Systems General: Reports: No Symptoms HEENT: Reports: No Symptoms Pulmonary: Reports: No Symptoms Cardiovascular: Reports: No Symptoms Gastrointestinal: Reports: No Symptoms - Patient Data Vitals - Most Recent: Last Vital Signs Temp 95.6 F L 01/22/20 12:29 Pulse 82 01/22/20 12:29 Resp 18 01/22/20 12:29 BP 117/73 01/22/20 12:29 Pulse Ox 94 L 01/22/20 13:31 Weight - Most Recent: 167 lb 0.002 oz I&O - Last 24 Hours: Intake & Output 01/21/20 01/22/20 01/22/20 22:59 06:59 14:59 Intake Total 30 934 670 Output Total 700 Balance -670 934 670 Lab Results Last 24 Hours: Laboratory Results - last 24 hr 01/21/20 01/22/20 01/22/20 Range/Units 13:49 06:09 06:09 WBC (4.5-11.0) K/uL RBC (4.30-5.90) M/uL Hgb (12.0-15.0) g/dL Hct (40.0-54.0) % MCV (80-98) fL MCH (27-31) pg MCHC (32-36) % Plt Count (150-400) K/uL Neut % (Auto) (36-66) % Lymph % (Auto) (24-44) % [place] % (Auto) (2-6) % Eos % (Auto) (2-4) % Baso % (Auto) (0-1) % Sodium (140-148) mmol/L Potassium (3.6-5.2) mmol/L Chloride (100-108) mmol/L Carbon Dioxide (21-32) mmol/L Anion Gap (5.0-14.0) mmol/L BUN (7-18) mg/dL Creatinine (0.8-1.3) mg/dL Est Cr Clr Drug Dosing mL/min Estimated GFR (MDRD) (>60) Glucose (74-106) mg/dL Calcium (8.5-10.1) mg/dL Ferritin 2240 H (8-388) ng/ml Total Bilirubin (0.2-1.0) mg/dL AST (15-37) U/L ALT (12-78) U/L Alkaline Phosphatase (46-116) U/L C-Reactive Protein (0.0-0.3) mg/dL Total Protein (6.4-8.2) g/dL Albumin (3.4-5.0) g/dL Globulin (2.3-3.5) g/dL Albumin/Globulin Ratio (1.2-2.2) Procalcitonin 0.18 ng/mL Blood Type O POSITIVE 01/22/20 01/22/20 Range/Units 06:09 06:09 WBC 6.1 (4.5-11.0) K/uL RBC 4.55 (4.30-5.90) M/uL Hgb 14.1 (12.0-15.0) g/dL Hct 41.4 (40.0-54.0) % MCV 91 (80-98) fL MCH 31 (27-31) pg MCHC 34 (32-36) % Plt Count 298 (150-400) K/uL Neut % (Auto) 74 H (36-66) % Lymph % (Auto) 9 L (24-44) % [place] % (Auto) 17 H (2-6) % Eos % (Auto) 0 L (2-4) % Baso % (Auto) 0 (0-1) % Sodium 134 L (140-148) mmol/L Potassium 3.7 (3.6-5.2) mmol/L Chloride 99 L (100-108) mmol/L Carbon Dioxide 26 (21-32) mmol/L Anion Gap 12.7 (5.0-14.0) mmol/L BUN 22 H (7-18) mg/dL Creatinine 1.0 (0.8-1.3) mg/dL Est Cr Clr Drug Dosing 70.07 mL/min Estimated GFR (MDRD) > 60 (>60) Glucose 120 H (74-106) mg/dL Calcium 8.4 L (8.5-10.1) mg/dL Ferritin (8-388) ng/ml Total Bilirubin 0.4 (0.2-1.0) mg/dL AST 105 H (15-37) U/L ALT 176 H (12-78) U/L Alkaline Phosphatase 57 (46-116) U/L C-Reactive Protein 10.18 H (0.0-0.3) mg/dL Total Protein 6.6 (6.4-8.2) g/dL Albumin 2.3 L (3.4-5.0) g/dL Globulin 4.3 H (2.3-3.5) g/dL Albumin/Globulin Ratio 0.5 L (1.2-2.2) Procalcitonin ng/mL Blood Type Joon Results Last 24 Hours: Microbiology 01/21/20 11:50 Aerobic Blood Culture - Preliminary Blood - Arm, Right NO GROWTH AFTER 1 DAY Anaerobic Blood Culture - Preliminary NO GROWTH AFTER 1 DAY 01/21/20 12:05 Aerobic Blood Culture - Preliminary Blood - Venous - Iv Start NO GROWTH AFTER 1 DAY Anaerobic Blood Culture - Preliminary NO GROWTH AFTER 1 DAY 01/21/20 12:50 Influenza Type A Antigen Screen - Final Nasopharyngeal Swab - Nare, Unspecified NEGATIVE INFLUENZA A VIRUS AG REFERENCE RANGE: NEGATIVE Influenza Type B Antigen Screen - Final NEGATIVE INFLUENZA B VIRUS AG REFERENCE RANGE: NEGATIVE Med Orders - Current: Current Medications Acetaminophen (Tylenol) 650 mg PO Q4H PRN PRN Reason: Fever Greater Than 101 Last Admin: 01/21/20 13:23 Dose: 650 mg Documented by: Albuterol (Ventolin Hfa) 0 gm INH Q2H PRN PRN Reason: Shortness of Breath Dexamethasone (Decadron) 6 mg IVPUSH DAILY [facility] Stop: 01/30/20 09:01 Last Admin: 01/22/20 09:29 Dose: 6 mg Documented by: Docusate Sodium (Colace) 100 mg PO BID PRN PRN Reason: Constipation Enoxaparin Sodium (Lovenox) 40 mg SUBCUT DAILY [facility] Last Admin: 01/22/20 09:28 Dose: 40 mg Documented by: Remdesivir 100 mg/ Sodium (Chloride) 100 mls @ 100 mls/hr IV Q24H [facility] Stop: 01/25/20 12:59 Last Admin: 01/22/20 12:32 Dose: 100 mls/hr Documented by: Sodium Chloride (Normal Saline) 250 mls @ 20 mls/hr IV ASDIRECTED JEAN MARIE Last Admin: 01/21/20 18:11 Dose: 20 mls/hr Documented by: Lorazepam (Ativan) 0.5 mg PO Q4H PRN PRN Reason: Anxiety Melatonin (Melatonin) 6 mg PO BEDTIME PRN PRN Reason: Sleep Last Admin: 01/22/20 01:31 Dose: 6 mg Documented by: Ondansetron HCl (Zofran Odt) 4 mg PO Q6H PRN PRN Reason: Nausea able to take PO Discontinued Medications Diphenhydramine HCl (Benadryl) 25 mg IVPUSH [facility] Stop: 01/21/20 15:31 Last Admin: 01/21/20 15:33 Dose: 25 mg Documented by: Remdesivir 200 mg/ Sodium (Chloride) 250 mls @ 250 mls/hr IV ONETIME ONE Stop: 01/21/20 12:59 Last Admin: 01/21/20 12:12 Dose: 250 mls/hr Documented by: - Exam Quality Assessment: Supplemental Oxygen, DVT Prophylaxis General: Alert, Oriented, Cooperative, No Acute Distress Lungs: Normal Respiratory Effort, Crackles (Curiously the patient's lungs are slightly improved despite increased oxygen needs). No: Clear to Auscultation Cardiovascular: Regular Rate, Regular Rhythm, No Murmurs GI/Abdominal Exam: Normal Bowel Sounds, No Distention Sepsis Event Note - Evaluation Sepsis Screening Result: No Definite Risk - Focused Exam Vital Signs: Vital Signs Temp Pulse Resp BP Pulse Ox 01/22/20 13:31 94 L 01/22/20 12:29 95.6 F L 82 18 117/73 93 L 01/22/20 07:26 92 L 01/22/20 07:00 96.6 F L 71 18 115/64 92 L 01/22/20 03:04 98.3 F 70 20 116/59 L 94 L 01/22/20 02:45 91 L 01/22/20 02:38 89 L - Problem List Review Problem List Initiated/Reviewed/Updated: Yes - My Orders Last 24 Hours: My Active Orders 01/21/20 13:49 ABO/RH TYPE [BBK] Routine FRESH FROZEN PLASMA [BBK] DAILY PATIENT RETYPE [BBK] Routine 01/21/20 13:50 Transfuse Fresh Frozen Plasma [COMM] DAILY 01/22/20 12:00 Remdesivir (Eua) [Remdesivir (EUA)] 100 mg Sodium Chloride 0.9% [Normal Saline] 100 ml IV Q24H 01/22/20 13:50 Transfuse Fresh Frozen Plasma [COMM] DAILY 01/23/20 11:21 FERRITIN [CHEM] DAILY PROCALCITONIN [CHEM] DAILY 01/23/20 11:30 C-REACTIVE PROTEIN [CHEM] DAILY CBC WITH AUTO DIFF [HEME] DAILY COMPREHENSIVE METABOLIC PN,CMP [CHEM] DAILY 01/23/20 13:49 FRESH FROZEN PLASMA [BBK] DAILY 01/23/20 13:50 Transfuse Fresh Frozen Plasma [COMM] DAILY 01/24/20 11:21 FERRITIN [CHEM] DAILY PROCALCITONIN [CHEM] DAILY 01/24/20 11:30 C-REACTIVE PROTEIN [CHEM] DAILY CBC WITH AUTO DIFF [HEME] DAILY COMPREHENSIVE METABOLIC PN,CMP [CHEM] DAILY 01/24/20 13:49 FRESH FROZEN PLASMA [BBK] DAILY 01/24/20 13:50 Transfuse Fresh Frozen Plasma [COMM] DAILY 01/25/20 11:21 FERRITIN [CHEM] DAILY PROCALCITONIN [CHEM] DAILY 01/25/20 11:30 C-REACTIVE PROTEIN [CHEM] DAILY CBC WITH AUTO DIFF [HEME] DAILY COMPREHENSIVE METABOLIC PN,CMP [CHEM] DAILY 01/25/20 13:49 FRESH FROZEN PLASMA [BBK] DAILY 01/25/20 13:50 Transfuse Fresh Frozen Plasma [COMM] DAILY 01/26/20 11:21 FERRITIN [CHEM] DAILY PROCALCITONIN [CHEM] DAILY 01/26/20 11:30 C-REACTIVE PROTEIN [CHEM] DAILY CBC WITH AUTO DIFF [HEME] DAILY COMPREHENSIVE METABOLIC PN,CMP [CHEM] DAILY - Plan Plan:: Assessment and Plan: 1. HEENT Patient has no active issues. The noted anosmia and loss of taste are likely c/w the COVID 19 disease course. 2. Cardiac No prior history of cardiac issue noted 3. Respiratory Acute respiratory failure Patient presented with dyspnea, hypoxia requiring supplemental oxygen. The patient has responded reasonably well to 1.5-2L NC oxygen. He continues to be dyspneic and has a significant cough. As of 01/22/2020 patient now needing 6 L NC, but objectively lungs are marginally better today COVID 19 PNA Patient has lab proved COVID 19 and symptomatically presents as such. Patient is a FULL CODE but does not wish to be kept alive indefinitely if he decompensates and requires intubation. We did obtain consents for Remdesivir, convalescent plasma -Dexamethasone 6 mg IV q day x 5 days (day 04/22) -Remdesivir 200 mg load followed by 100 mg daily infusion (loaded today - day 04/22) -Convalescent serum 1 unit daily (Day 2) -Daily CBC, CMP, CRP, Ferritin, D-dimer, procalcitonin -Will start IV atbx for CAP coverage as well (orders to follow) -Oxygen to keep SpO2 between 90-96% -BCx pending but Negative thus far -Discussed contingency plan for transfer if patient deteriorates. 4. Renal/F/E/N Patient stable. Caution with IV fluid loads. Advance po as tolerated -Daily I/O -Caution with fluids -ADAT 5. Gastrointestinal No issues but for intermittent loose stools likely d/t COVID sxs 6. Neuromusculoskeletal Notes profound, generalized weakness which I think is likely d/t COVID 19 -PT/OT -Case management to begin placement process 7. Psychiatric/Mental Health No active issues 8. Infectious Disease See above Disposition: Likely to TCU for acute rehab Enrique Quispe M.D. Hospitalist 22 January 2020
[2020-01-22] MEDS ORDERED: cefTRIAXone 1 GM in Sodium Chloride 0.9% 50 ML IV SCH (23:00)
[2020-01-23] MEDS: Azithromycin 500 MG in Sodium Chloride 0.9% 250 ML IV SCH ×2 (00:29→22:07)
[2020-01-23] MEDS: Enoxaparin 40 MG/0.4 ML Syringe SUBCUT SCH (08:04)
[2020-01-23] MEDS: Dexamethasone 4 MG/ML SDV IVPUSH SCH (08:04)
--- NOTE | 2020-01-23 13:16 | PCM.PN ---
- General Info Date of Service: 01/23/20 Admission Dx/Problem (Free Text): 1. COVID 19 PNA Subjective Update: Patient is about the same. Perhaps saturating a little better on the 5-6 L he has fluctuated between needing thus far. No major developments overnight. Overall stable Functional Status: Reports: Pain Controlled - Review of Systems General: Reports: No Symptoms HEENT: Reports: No Symptoms Pulmonary: Reports: No Symptoms Cardiovascular: Reports: No Symptoms Gastrointestinal: Reports: No Symptoms - Patient Data Vitals - Most Recent: Last Vital Signs Temp 97.0 F 01/23/20 12:24 Pulse 83 01/23/20 12:24 Resp 18 01/23/20 12:24 BP 120/57 L 01/23/20 12:24 Pulse Ox 93 L 01/23/20 12:24 Weight - Most Recent: 167 lb 0.002 oz I&O - Last 24 Hours: Intake & Output 01/22/20 01/23/20 01/23/20 22:59 06:59 14:59 Intake Total 500 300 246 Output Total 300 Balance 500 300 -54 Lab Results Last 24 Hours: Laboratory Results - last 24 hr 01/21/20 01/23/20 01/23/20 Range/Units 13:49 06:00 06:00 WBC 16.0 H (4.5-11.0) K/uL RBC 4.48 (4.30-5.90) M/uL Hgb 13.8 (12.0-15.0) g/dL Hct 41.0 (40.0-54.0) % MCV 92 (80-98) fL MCH 31 (27-31) pg MCHC 34 (32-36) % Plt Count 361 (150-400) K/uL Neut % (Auto) 86 H (36-66) % Lymph % (Auto) 3 L (24-44) % [place] % (Auto) 11 H (2-6) % Eos % (Auto) 0 L (2-4) % Baso % (Auto) 0 (0-1) % Sodium 137 L (140-148) mmol/L Potassium 3.5 L (3.6-5.2) mmol/L Chloride 103 (100-108) mmol/L Carbon Dioxide 25 (21-32) mmol/L Anion Gap 12.5 (5.0-14.0) mmol/L BUN 20 H (7-18) mg/dL Creatinine 0.9 (0.8-1.3) mg/dL Est Cr Clr Drug Dosing 77.54 mL/min Estimated GFR (MDRD) > 60 (>60) Glucose 117 H (74-106) mg/dL Calcium 8.3 L (8.5-10.1) mg/dL Ferritin 1933 H (8-388) ng/ml Total Bilirubin 0.4 (0.2-1.0) mg/dL AST 75 H (15-37) U/L ALT 182 H (12-78) U/L Alkaline Phosphatase 57 (46-116) U/L C-Reactive Protein 4.71 H (0.0-0.3) mg/dL Total Protein 6.3 L (6.4-8.2) g/dL Albumin 2.3 L (3.4-5.0) g/dL Globulin 4.0 H (2.3-3.5) g/dL Albumin/Globulin Ratio 0.6 L (1.2-2.2) Procalcitonin ng/mL Blood Type O POSITIVE 01/23/20 Range/Units 06:00 WBC (4.5-11.0) K/uL RBC (4.30-5.90) M/uL Hgb (12.0-15.0) g/dL Hct (40.0-54.0) % MCV (80-98) fL MCH (27-31) pg MCHC (32-36) % Plt Count (150-400) K/uL Neut % (Auto) (36-66) % Lymph % (Auto) (24-44) % [place] % (Auto) (2-6) % Eos % (Auto) (2-4) % Baso % (Auto) (0-1) % Sodium (140-148) mmol/L Potassium (3.6-5.2) mmol/L Chloride (100-108) mmol/L Carbon Dioxide (21-32) mmol/L Anion Gap (5.0-14.0) mmol/L BUN (7-18) mg/dL Creatinine (0.8-1.3) mg/dL Est Cr Clr Drug Dosing mL/min Estimated GFR (MDRD) (>60) Glucose (74-106) mg/dL Calcium (8.5-10.1) mg/dL Ferritin (8-388) ng/ml Total Bilirubin (0.2-1.0) mg/dL AST (15-37) U/L ALT (12-78) U/L Alkaline Phosphatase (46-116) U/L C-Reactive Protein (0.0-0.3) mg/dL Total Protein (6.4-8.2) g/dL Albumin (3.4-5.0) g/dL Globulin (2.3-3.5) g/dL Albumin/Globulin Ratio (1.2-2.2) Procalcitonin 0.07 ng/mL Blood Type Joon Results Last 24 Hours: Microbiology 01/21/20 11:50 Aerobic Blood Culture - Preliminary Blood - Arm, Right NO GROWTH AFTER 2 DAYS Anaerobic Blood Culture - Preliminary NO GROWTH AFTER 2 DAYS 01/21/20 12:05 Aerobic Blood Culture - Preliminary Blood - Venous - Iv Start NO GROWTH AFTER 2 DAYS Anaerobic Blood Culture - Preliminary Gram Positive Cocci Med Orders - Current: Current Medications Acetaminophen (Tylenol) 650 mg PO Q4H PRN PRN Reason: Fever Greater Than 101 Last Admin: 01/21/20 13:23 Dose: 650 mg Documented by: Albuterol (Ventolin Hfa) 0 gm INH Q2H PRN PRN Reason: Shortness of Breath Dexamethasone (Decadron) 6 mg IVPUSH DAILY [facility] Stop: 01/30/20 09:01 Last Admin: 01/23/20 08:04 Dose: 6 mg Documented by: Docusate Sodium (Colace) 100 mg PO BID PRN PRN Reason: Constipation Enoxaparin Sodium (Lovenox) 40 mg SUBCUT DAILY [facility] Last Admin: 01/23/20 08:04 Dose: 40 mg Documented by: Remdesivir 100 mg/ Sodium (Chloride) 100 mls @ 100 mls/hr IV Q24H [facility] Stop: 01/25/20 12:59 Last Admin: 01/22/20 12:32 Dose: 100 mls/hr Documented by: Sodium Chloride (Normal Saline) 250 mls @ 20 mls/hr IV ASDIRECTED [facility] Last Admin: 01/21/20 18:11 Dose: 20 mls/hr Documented by: Azithromycin 500 mg/ Sodium (Chloride) 250 mls @ 250 mls/hr IV Q24H [facility] Last Admin: 01/23/20 00:29 Dose: 250 mls/hr Documented by: Ceftriaxone Sodium 1 gm/ (Sodium Chloride) 50 mls @ 100 mls/hr IV Q24H [facility] Lorazepam (Ativan) 0.5 mg PO Q4H PRN PRN Reason: Anxiety Melatonin (Melatonin) 6 mg PO BEDTIME PRN PRN Reason: Sleep Last Admin: 01/22/20 01:31 Dose: 6 mg Documented by: Ondansetron HCl (Zofran Odt) 4 mg PO Q6H PRN PRN Reason: Nausea able to take PO Discontinued Medications Diphenhydramine HCl (Benadryl) 25 mg IVPUSH ONCALL ONE Stop: 01/21/20 15:31 Last Admin: 01/21/20 15:33 Dose: 25 mg Documented by: Remdesivir 200 mg/ Sodium (Chloride) 250 mls @ 250 mls/hr IV ONETIME ONE Stop: 01/21/20 12:59 Last Admin: 01/21/20 12:12 Dose: 250 mls/hr Documented by: Ceftriaxone Sodium 1 gm/ (Sodium Chloride) 50 mls @ 100 mls/hr IV Q24H [facility] Last Admin: 01/22/20 23:36 Dose: 100 mls/hr Documented by: - Exam Quality Assessment: Supplemental Oxygen, DVT Prophylaxis. No: Central Line/PICC, Urine Catheter General: Alert, Oriented, Cooperative, No Acute Distress Lungs: Normal Respiratory Effort, Crackles (These are SUBSTANTIALLY improved with nearly no crackle noted in the mid crespo. ) Cardiovascular: Regular Rate, Regular Rhythm GI/Abdominal Exam: Normal Bowel Sounds, Soft, Non-Tender, No Distention, No Abnormal Bruit, No Mass Sepsis Event Note - Evaluation Sepsis Screening Result: No Definite Risk - Focused Exam Vital Signs: Vital Signs Temp Temp Pulse Resp BP BP Pulse Ox 01/23/20 12:24 97.0 F 83 18 120/57 L 93 L 01/23/20 12:09 96.8 F L 83 16 119/70 93 L 01/23/20 11:54 96.9 F 80 16 108/64 91 L 01/23/20 11:00 96.8 F L 84 18 95/55 L 91 L 01/23/20 08:07 01/23/20 07:24 94 L 01/23/20 07:00 96.4 F L 87 18 115/70 89 L 01/23/20 03:06 96.4 F L 64 16 121/58 L 94 L 01/23/20 02:18 92 L Pulse Ox 01/23/20 12:24 01/23/20 12:09 01/23/20 11:54 01/23/20 11:00 01/23/20 08:07 90 L 01/23/20 07:24 01/23/20 07:00 01/23/20 03:06 01/23/20 02:18 - Problem List Review Problem List Initiated/Reviewed/Updated: Yes - My Orders Last 24 Hours: My Active Orders 01/22/20 13:50 Transfuse Fresh Frozen Plasma [COMM] DAILY 01/22/20 16:30 GLUCOSE POC LAB TO COLLECT JPM [POC] QIDACANDBED 01/22/20 21:00 GLUCOSE POC LAB TO COLLECT JPM [POC] QIDACANDBED 01/23/20 07:30 GLUCOSE POC LAB TO COLLECT JPM [POC] QIDACANDBED 01/23/20 11:30 GLUCOSE POC LAB TO COLLECT JPM [POC] QIDACANDBED 01/23/20 13:50 Transfuse Fresh Frozen Plasma [COMM] DAILY 01/23/20 16:30 GLUCOSE POC LAB TO COLLECT JPM [POC] QIDACANDBED 01/23/20 21:00 GLUCOSE POC LAB TO COLLECT JPM [POC] QIDACANDBED 01/24/20 05:00 CBC WITH AUTO DIFF [HEME] DAILY COMPREHENSIVE METABOLIC PN,CMP [CHEM] DAILY CRP [C-REACTIVE PROTEIN] [CHEM] DAILY FERRITIN [CHEM] DAILY PROCALCITONIN [CHEM] DAILY 01/24/20 11:21 FERRITIN [CHEM] DAILY PROCALCITONIN [CHEM] DAILY 01/24/20 11:30 C-REACTIVE PROTEIN [CHEM] DAILY CBC WITH AUTO DIFF [HEME] DAILY COMPREHENSIVE METABOLIC PN,CMP [CHEM] DAILY 01/24/20 13:49 FRESH FROZEN PLASMA [BBK] DAILY 01/24/20 13:50 Transfuse Fresh Frozen Plasma [COMM] DAILY 01/25/20 05:00 CBC WITH AUTO DIFF [HEME] DAILY COMPREHENSIVE METABOLIC PN,CMP [CHEM] DAILY CRP [C-REACTIVE PROTEIN] [CHEM] DAILY FERRITIN [CHEM] DAILY PROCALCITONIN [CHEM] DAILY 01/25/20 11:21 FERRITIN [CHEM] DAILY PROCALCITONIN [CHEM] DAILY 01/25/20 11:30 C-REACTIVE PROTEIN [CHEM] DAILY CBC WITH AUTO DIFF [HEME] DAILY COMPREHENSIVE METABOLIC PN,CMP [CHEM] DAILY 01/25/20 13:49 FRESH FROZEN PLASMA [BBK] DAILY 01/25/20 13:50 Transfuse Fresh Frozen Plasma [COMM] DAILY 01/26/20 05:00 CBC WITH AUTO DIFF [HEME] DAILY COMPREHENSIVE METABOLIC PN,CMP [CHEM] DAILY CRP [C-REACTIVE PROTEIN] [CHEM] DAILY FERRITIN [CHEM] DAILY PROCALCITONIN [CHEM] DAILY 01/26/20 11:21 FERRITIN [CHEM] DAILY PROCALCITONIN [CHEM] DAILY 01/26/20 11:30 C-REACTIVE PROTEIN [CHEM] DAILY CBC WITH AUTO DIFF [HEME] DAILY COMPREHENSIVE METABOLIC PN,CMP [CHEM] DAILY - Plan Plan:: Assessment and Plan: 1. HEENT Patient has no active issues. The noted anosmia and loss of taste are likely c/w the COVID 19 disease course. 2. Cardiac No prior history of cardiac issue noted 3. Respiratory Acute respiratory failure Patient presented with dyspnea, hypoxia requiring supplemental oxygen. The patient has responded reasonably well to 1.5-2L NC oxygen. He continues to be dyspneic and has a significant cough. As of 01/22/2020 patient now needing 6 L NC, but objectively lungs are marginally better today COVID 19 PNA Patient has lab proved COVID 19 and symptomatically presents as such. Patient is a FULL CODE but does not wish to be kept alive indefinitely if he decompensates and requires intubation. We did obtain consents for Remdesivir, convalescent plasma. Patient is slowly improving and his lung exam is markedly improved today -Dexamethasone 6 mg IV q day x 5 days (day 35) -Remdesivir 200 mg load followed by 100 mg daily infusion (loaded today - day 3) -Convalescent serum 1 unit daily (Day 35) -Daily CBC, CMP, CRP, Ferritin, D-dimer, procalcitonin -Will start IV atbx for CAP coverage as well (orders to follow) -Oxygen to keep SpO2 between 90-96% -BCx pending but Negative thus far -Discussed contingency plan for transfer if patient deteriorates. 4. Renal/F/E/N Patient stable. Caution with IV fluid loads. Advance po as tolerated -Daily I/O -Caution with fluids -ADAT 5. Gastrointestinal No issues but for intermittent loose stools likely d/t COVID sxs 6. Neuromusculoskeletal Notes profound, generalized weakness which I think is likely d/t COVID 19 -PT/OT -Case management to begin placement process 7. Psychiatric/Mental Health No active issues 8. Infectious Disease See above Disposition: Likely to TCU for acute rehab Enrique Quispe M.D. Hospitalist 22 January 2020
[2020-01-23] MEDS: REMDESIVIR (EUA) 100 MG in Sodium Chloride 0.9% 100 ML IV SCH (13:32)
[2020-01-23] MEDS: Melatonin 3 MG Tab PO PRN (21:09)
[2020-01-23] MEDS: cefTRIAXone 1 GM in Sodium Chloride 0.9% 50 ML IV SCH (21:10)
[2020-01-24] MEDS: Albuterol 8 GM Inhaler INH PRN ×2 (05:29→08:38)
[2020-01-24] MEDS: Enoxaparin 40 MG/0.4 ML Syringe SUBCUT SCH (08:43)
[2020-01-24] MEDS: Dexamethasone 4 MG/ML SDV IVPUSH SCH (08:43)
[2020-01-24] MEDS ORDERED: Furosemide 40 MG/4 ML VIAL IVPUSH ONE (09:30)
[2020-01-24] MEDS: REMDESIVIR (EUA) 100 MG in Sodium Chloride 0.9% 100 ML IV SCH (12:45)
--- NOTE | 2020-01-24 13:38 | PCM.PN ---
- General Info Date of Service: 01/24/20 Admission Dx/Problem (Free Text): 1. COVID 19 PNA 2. Hypoxia Functional Status: Reports: Pain Controlled - Review of Systems General: Reports: Weakness, Fatigue HEENT: Reports: No Symptoms Pulmonary: Reports: Shortness of Breath, Cough Cardiovascular: Reports: Chest Pain Gastrointestinal: Reports: No Symptoms Musculoskeletal: Reports: No Symptoms Skin: Reports: No Symptoms Neurological: Reports: No Symptoms Psychiatric: Reports: No Symptoms - Patient Data Vitals - Most Recent: Last Vital Signs Temp 98.3 F 01/24/20 10:42 Pulse 79 01/24/20 10:42 Resp 18 01/24/20 10:42 BP 90/50 L 01/24/20 10:42 Pulse Ox 89 L 01/24/20 10:42 Weight - Most Recent: 167 lb 0.002 oz I&O - Last 24 Hours: Intake & Output 01/23/20 01/24/20 01/24/20 22:59 06:59 14:59 Intake Total 1000 650 700 Output Total 746 831 7567 Balance 720 250 -1000 Lab Results Last 24 Hours: Laboratory Results - last 24 hr 01/21/20 01/24/20 01/24/20 Range/Units 13:49 05:00 05:00 WBC 15.3 H (4.5-11.0) K/uL RBC 4.33 (4.30-5.90) M/uL Hgb 13.4 (12.0-15.0) g/dL Hct 39.9 L (40.0-54.0) % MCV 92 (80-98) fL MCH 31 (27-31) pg MCHC 34 (32-36) % Plt Count 393 (150-400) K/uL Neut % (Auto) 87 H (36-66) % Lymph % (Auto) 4 L (24-44) % [place] % (Auto) 9 H (2-6) % Eos % (Auto) 0 L (2-4) % Baso % (Auto) 0 (0-1) % Sodium (140-148) mmol/L Potassium (3.6-5.2) mmol/L Chloride (100-108) mmol/L Carbon Dioxide (21-32) mmol/L Anion Gap (5.0-14.0) mmol/L BUN (7-18) mg/dL Creatinine (0.8-1.3) mg/dL Est Cr Clr Drug Dosing mL/min Estimated GFR (MDRD) (>60) Glucose (74-106) mg/dL Calcium (8.5-10.1) mg/dL Ferritin (8-388) ng/ml Total Bilirubin (0.2-1.0) mg/dL AST (15-37) U/L ALT (12-78) U/L Alkaline Phosphatase (46-116) U/L C-Reactive Protein (0.0-0.3) mg/dL Total Protein (6.4-8.2) g/dL Albumin (3.4-5.0) g/dL Globulin (2.3-3.5) g/dL Albumin/Globulin Ratio (1.2-2.2) Procalcitonin 0.07 ng/mL Blood Type O POSITIVE 01/24/20 Range/Units 05:45 WBC (4.5-11.0) K/uL RBC (4.30-5.90) M/uL Hgb (12.0-15.0) g/dL Hct (40.0-54.0) % MCV (80-98) fL MCH (27-31) pg MCHC (32-36) % Plt Count (150-400) K/uL Neut % (Auto) (36-66) % Lymph % (Auto) (24-44) % [place] % (Auto) (2-6) % Eos % (Auto) (2-4) % Baso % (Auto) (0-1) % Sodium 139 L (140-148) mmol/L Potassium 3.8 (3.6-5.2) mmol/L Chloride 103 (100-108) mmol/L Carbon Dioxide 25 (21-32) mmol/L Anion Gap 14.8 H (5.0-14.0) mmol/L BUN 19 H (7-18) mg/dL Creatinine 0.9 (0.8-1.3) mg/dL Est Cr Clr Drug Dosing 77.54 mL/min Estimated GFR (MDRD) > 60 (>60) Glucose 96 (74-106) mg/dL Calcium 8.4 L (8.5-10.1) mg/dL Ferritin 1599 H (8-388) ng/ml Total Bilirubin 0.6 (0.2-1.0) mg/dL AST 81 H (15-37) U/L ALT 212 H (12-78) U/L Alkaline Phosphatase 61 (46-116) U/L C-Reactive Protein 5.33 H (0.0-0.3) mg/dL Total Protein 6.2 L (6.4-8.2) g/dL Albumin 2.2 L (3.4-5.0) g/dL Globulin 4.0 H (2.3-3.5) g/dL Albumin/Globulin Ratio 0.6 L (1.2-2.2) Procalcitonin ng/mL Blood Type Joon Results Last 24 Hours: Microbiology 01/21/20 11:50 Aerobic Blood Culture - Preliminary Blood - Arm, Right NO GROWTH AFTER 3 DAYS Anaerobic Blood Culture - Preliminary NO GROWTH AFTER 3 DAYS 01/21/20 12:05 Aerobic Blood Culture - Preliminary Blood - Venous - Iv Start NO GROWTH AFTER 3 DAYS Anaerobic Blood Culture - Preliminary Gram Positive Cocci Med Orders - Current: Current Medications Acetaminophen (Tylenol) 650 mg PO Q4H PRN PRN Reason: Fever Greater Than 101 Last Admin: 01/21/20 13:23 Dose: 650 mg Documented by: Albuterol (Ventolin Hfa) 0 gm INH Q2H PRN PRN Reason: Shortness of Breath Last Admin: 01/24/20 08:38 Dose: 2 puff Documented by: Dexamethasone (Decadron) 6 mg IVPUSH DAILY [facility] Stop: 01/30/20 09:01 Last Admin: 01/24/20 08:43 Dose: 6 mg Documented by: Docusate Sodium (Colace) 100 mg PO BID PRN PRN Reason: Constipation Enoxaparin Sodium (Lovenox) 40 mg SUBCUT DAILY [facility] Last Admin: 01/24/20 08:43 Dose: 40 mg Documented by: Remdesivir 100 mg/ Sodium (Chloride) 100 mls @ 100 mls/hr IV Q24H [facility] Stop: 01/25/20 12:59 Last Admin: 01/24/20 12:45 Dose: 100 mls/hr Documented by: Sodium Chloride (Normal Saline) 250 mls @ 20 mls/hr IV ASDIRECTED [facility] Last Admin: 01/21/20 18:11 Dose: 20 mls/hr Documented by: Azithromycin 500 mg/ Sodium (Chloride) 250 mls @ 250 mls/hr IV Q24H [facility] Last Admin: 01/23/20 22:07 Dose: 250 mls/hr Documented by: Ceftriaxone Sodium 1 gm/ (Sodium Chloride) 50 mls @ 100 mls/hr IV Q24H [facility] Last Admin: 01/23/20 21:10 Dose: 100 mls/hr Documented by: Lorazepam (Ativan) 0.5 mg PO Q4H PRN PRN Reason: Anxiety Melatonin (Melatonin) 6 mg PO BEDTIME PRN PRN Reason: Sleep Last Admin: 01/23/20 21:09 Dose: 6 mg Documented by: Ondansetron HCl (Zofran Odt) 4 mg PO Q6H PRN PRN Reason: Nausea able to take PO Discontinued Medications Diphenhydramine HCl (Benadryl) 25 mg IVPUSH ONCALL ONE Stop: 01/21/20 15:31 Last Admin: 01/21/20 15:33 Dose: 25 mg Documented by: Furosemide (Lasix) 40 mg IVPUSH ONETIME [facility] Stop: 01/24/20 09:31 Last Admin: 01/24/20 09:37 Dose: 40 mg Documented by: Remdesivir 200 mg/ Sodium (Chloride) 250 mls @ 250 mls/hr IV ONETIME [facility] Stop: 01/21/20 12:59 Last Admin: 01/21/20 12:12 Dose: 250 mls/hr Documented by: Ceftriaxone Sodium 1 gm/ (Sodium Chloride) 50 mls @ 100 mls/hr IV Q24H [facility] Last Admin: 01/22/20 23:36 Dose: 100 mls/hr Documented by: - Exam Quality Assessment: Supplemental Oxygen, DVT Prophylaxis General: Alert, Oriented, Cooperative, Mild Distress Lungs: Crackles, Other (increasing oxygenation needs) Cardiovascular: Regular Rate, Regular Rhythm, No Murmurs GI/Abdominal Exam: Normal Bowel Sounds, Soft, Non-Tender, No Distention, No Abnormal Bruit, No Mass Skin: Warm, Dry, Intact Psy/Mental Status: Alert, Normal Affect, Normal Mood Sepsis Event Note - Evaluation Sepsis Screening Result: No Definite Risk - Focused Exam Vital Signs: Vital Signs Temp Pulse Resp BP Pulse Ox Pulse Ox 01/24/20 10:42 98.3 F 79 18 90/50 L 89 L 01/24/20 09:38 95 01/24/20 08:36 90 L 01/24/20 07:14 97 01/24/20 07:00 98.7 F 76 18 115/65 96 01/24/20 06:09 90 L 01/24/20 03:16 97.7 F 64 18 119/55 L 95 - Problem List Review Problem List Initiated/Reviewed/Updated: Yes - My Orders Last 24 Hours: My Active Orders 01/23/20 13:50 Transfuse Fresh Frozen Plasma [COMM] DAILY 01/23/20 16:30 GLUCOSE POC LAB TO COLLECT JPM [POC] QIDACANDBED 01/23/20 21:00 GLUCOSE POC LAB TO COLLECT JPM [POC] QIDACANDBED 01/24/20 13:50 Transfuse Fresh Frozen Plasma [COMM] DAILY 01/25/20 05:00 CBC WITH AUTO DIFF [HEME] DAILY COMPREHENSIVE METABOLIC PN,CMP [CHEM] DAILY CRP [C-REACTIVE PROTEIN] [CHEM] DAILY FERRITIN [CHEM] DAILY PROCALCITONIN [CHEM] DAILY 01/25/20 11:21 FERRITIN [CHEM] DAILY PROCALCITONIN [CHEM] DAILY 01/25/20 11:30 C-REACTIVE PROTEIN [CHEM] DAILY CBC WITH AUTO DIFF [HEME] DAILY COMPREHENSIVE METABOLIC PN,CMP [CHEM] DAILY 01/25/20 13:49 FRESH FROZEN PLASMA [BBK] DAILY 01/25/20 13:50 Transfuse Fresh Frozen Plasma [COMM] DAILY 01/26/20 05:00 CBC WITH AUTO DIFF [HEME] DAILY COMPREHENSIVE METABOLIC PN,CMP [CHEM] DAILY CRP [C-REACTIVE PROTEIN] [CHEM] DAILY FERRITIN [CHEM] DAILY PROCALCITONIN [CHEM] DAILY 01/26/20 11:21 FERRITIN [CHEM] DAILY PROCALCITONIN [CHEM] DAILY 01/26/20 11:30 C-REACTIVE PROTEIN [CHEM] DAILY CBC WITH AUTO DIFF [HEME] DAILY COMPREHENSIVE METABOLIC PN,CMP [CHEM] DAILY - Plan Plan:: Assessment and Plan: 1. HEENT Patient has no active issues. The noted anosmia and loss of taste are likely c/w the COVID 19 disease course. 2. Cardiac No prior history of cardiac issue noted 3. Respiratory Acute respiratory failure Patient presented with dyspnea, hypoxia requiring supplemental oxygen. The patient has responded reasonably well to 1.5-2L NC oxygen. He continues to be dyspneic and has a significant cough. As of 01/24/2020 patient now needing 8 L NC, lungs are worse today, crackles noted in bilateral bases, RML COVID 19 PNA Patient has lab proved COVID 19 and symptomatically presents as such. Patient is a FULL CODE but does not wish to be kept alive indefinitely if he decompensates and requires intubation. We did obtain consents for Remdesivir, convalescent plasma. Patient is slowly improving and his lung exam is markedly improved today -Dexamethasone 6 mg IV q day x 5 days (day 06/20) -Remdesivir 200 mg load followed by 100 mg daily infusion (loaded today - day 06/20) -Convalescent serum 1 unit daily (Day 06/20) -Daily CBC, CMP, CRP, Ferritin, D-dimer, procalcitonin -Continue atbx -Oxygen to keep SpO2 between 90-96% -BCx pending but Negative thus far -Discussed contingency plan for transfer if patient deteriorates. 4. Renal/F/E/N Patient stable. Caution with IV fluid loads. Advance po as tolerated -Daily I/O -Caution with fluids -ADAT 5. Gastrointestinal No issues but for intermittent loose stools likely d/t COVID sxs 6. Neuromusculoskeletal Notes profound, generalized weakness which I think is likely d/t COVID 19 -PT/OT -Case management to begin placement process 7. Psychiatric/Mental Health No active issues 8. Infectious Disease See above Disposition: Likely to TCU for acute rehab Enrique Quispe M.D. Hospitalist 24 January 2020
[2020-01-24] MEDS: cefTRIAXone 1 GM in Sodium Chloride 0.9% 50 ML IV SCH (22:49)
[2020-01-24] MEDS: Azithromycin 500 MG in Sodium Chloride 0.9% 250 ML IV SCH (23:21)
[2020-01-25] MEDS: Dexamethasone 4 MG/ML SDV IVPUSH SCH (09:23)
[2020-01-25] MEDS: Enoxaparin 40 MG/0.4 ML Syringe SUBCUT SCH (09:23)
[2020-01-25] MEDS ORDERED: Potassium Chloride 20 MEQ Tab.ER PO ONE (10:00)
[2020-01-25] MEDS: REMDESIVIR (EUA) 100 MG in Sodium Chloride 0.9% 100 ML IV SCH (11:54)
--- NOTE | 2020-01-25 17:06 | PCM.PN ---
- General Info Date of Service: 01/25/20 Subjective Update: Mr. Whalen has shown evidence of decline in the last 24 hours, requiring increased level of supplemental oxygen because of hypoxia and increased shortness of breath. Since this morning things have stabilized somewhat and he has not required progressive increase in oxygen since then. - Review of Systems General: Reports: Weakness, Fatigue. Denies: Fever, Chills Pulmonary: Reports: Shortness of Breath, Cough. Denies: Pleuritic Chest Pain, Sputum, Hemoptysis, Wheezing Cardiovascular: Reports: Dyspnea on Exertion. Denies: Chest Pain, Palpitations, Orthopnea, PND, Edema, Lightheadedness Gastrointestinal: Reports: No Symptoms Genitourinary: Reports: No Symptoms - Patient Data Vitals - Most Recent: Last Vital Signs Temp 98 F 01/25/20 12:00 Pulse 93 01/25/20 12:00 Resp 20 01/25/20 12:00 BP 128/60 01/25/20 12:00 Pulse Ox 95 01/25/20 13:39 Weight - Most Recent: 167 lb 0.002 oz I&O - Last 24 Hours: Intake & Output 01/25/20 01/25/20 01/25/20 06:59 14:59 22:59 Intake Total 700 Output Total 950 Balance -250 Lab Results Last 24 Hours: Laboratory Results - last 24 hr 01/25/20 01/25/20 01/25/20 Range/Units 04:40 04:40 04:40 WBC 16.0 H (4.5-11.0) K/uL RBC 4.35 (4.30-5.90) M/uL Hgb 13.3 (12.0-15.0) g/dL Hct 39.8 L (40.0-54.0) % MCV 92 (80-98) fL MCH 31 (27-31) pg MCHC 33 (32-36) % Plt Count 397 (150-400) K/uL Neut % (Auto) 86 H (36-66) % Lymph % (Auto) 4 L (24-44) % Sanders % (Auto) 10 H (2-6) % Eos % (Auto) 0 L (2-4) % Baso % (Auto) 0 (0-1) % Sodium 140 (140-148) mmol/L Potassium 3.4 L (3.6-5.2) mmol/L Chloride 103 (100-108) mmol/L Carbon Dioxide 27 (21-32) mmol/L Anion Gap 13.4 (5.0-14.0) mmol/L BUN 22 H (7-18) mg/dL Creatinine 0.9 (0.8-1.3) mg/dL Est Cr Clr Drug Dosing 77.54 mL/min Estimated GFR (MDRD) > 60 (>60) Glucose 110 H (74-106) mg/dL Calcium 8.4 L (8.5-10.1) mg/dL Ferritin 1874 H (8-388) ng/ml Total Bilirubin 0.6 (0.2-1.0) mg/dL AST 65 H (15-37) U/L ALT 212 H (12-78) U/L Alkaline Phosphatase 65 (46-116) U/L C-Reactive Protein 10.85 H (0.0-0.3) mg/dL Total Protein 6.3 L (6.4-8.2) g/dL Albumin 2.3 L (3.4-5.0) g/dL Globulin 4.0 H (2.3-3.5) g/dL Albumin/Globulin Ratio 0.6 L (1.2-2.2) Procalcitonin 0.13 ng/mL Joon Results Last 24 Hours: Microbiology 01/21/20 12:05 Aerobic Blood Culture - Preliminary Blood - Venous - Iv Start NO GROWTH AFTER 4 DAYS Anaerobic Blood Culture - Final Staphylococcus Epidermidis 01/21/20 11:50 Aerobic Blood Culture - Preliminary Blood - Arm, Right NO GROWTH AFTER 4 DAYS Anaerobic Blood Culture - Preliminary NO GROWTH AFTER 4 DAYS Med Orders - Current: Current Medications Acetaminophen (Tylenol) 650 mg PO Q4H PRN PRN Reason: Fever Greater Than 101 Last Admin: 01/21/20 13:23 Dose: 650 mg Documented by: Albuterol (Ventolin Hfa) 0 gm INH Q2H PRN PRN Reason: Shortness of Breath Last Admin: 01/24/20 08:38 Dose: 2 puff Documented by: Dexamethasone (Decadron) 6 mg IVPUSH DAILY [facility] Stop: 01/30/20 09:01 Last Admin: 01/25/20 09:23 Dose: 6 mg Documented by: Docusate Sodium (Colace) 100 mg PO BID PRN PRN Reason: Constipation Enoxaparin Sodium (Lovenox) 40 mg SUBCUT DAILY [facility] Last Admin: 01/25/20 09:23 Dose: 40 mg Documented by: Sodium Chloride (Normal Saline) 250 mls @ 20 mls/hr IV ASDIRECTED [facility] Last Admin: 01/21/20 18:11 Dose: 20 mls/hr Documented by: Azithromycin 500 mg/ Sodium (Chloride) 250 mls @ 250 mls/hr IV Q24H [facility] Last Admin: 01/24/20 23:21 Dose: 250 mls/hr Documented by: Ceftriaxone Sodium 1 gm/ (Sodium Chloride) 50 mls @ 600 mls/hr IV Q24H [facility] Lorazepam (Ativan) 0.5 mg PO Q4H PRN PRN Reason: Anxiety Melatonin (Melatonin) 6 mg PO BEDTIME PRN PRN Reason: Sleep Last Admin: 01/23/20 21:09 Dose: 6 mg Documented by: Ondansetron HCl (Zofran Odt) 4 mg PO Q6H PRN PRN Reason: Nausea able to take PO Discontinued Medications Diphenhydramine HCl (Benadryl) 25 mg IVPUSH ONCALL ONE Stop: 01/21/20 15:31 Last Admin: 01/21/20 15:33 Dose: 25 mg Documented by: Furosemide (Lasix) 40 mg IVPUSH ONETIME ONE Stop: 01/24/20 09:31 Last Admin: 01/24/20 09:37 Dose: 40 mg Documented by: Remdesivir 100 mg/ Sodium (Chloride) 100 mls @ 100 mls/hr IV Q24H [facility] Stop: 01/25/20 12:59 Last Admin: 01/25/20 11:54 Dose: 100 mls/hr Documented by: Remdesivir 200 mg/ Sodium (Chloride) 250 mls @ 250 mls/hr IV ONETIME ONE Stop: 01/21/20 12:59 Last Admin: 01/21/20 12:12 Dose: 250 mls/hr Documented by: Ceftriaxone Sodium 1 gm/ (Sodium Chloride) 50 mls @ 100 mls/hr IV Q24H [facility] Last Admin: 01/22/20 23:36 Dose: 100 mls/hr Documented by: Ceftriaxone Sodium 1 gm/ (Sodium Chloride) 50 mls @ 100 mls/hr IV Q24H [facility] Last Admin: 01/24/20 22:49 Dose: 100 mls/hr Documented by: Potassium Chloride (Klor-Con M20) 40 meq PO ONETIME ONE Stop: 01/25/20 10:01 Last Admin: 01/25/20 11:59 Dose: 40 meq Documented by: - Exam Quality Assessment: Supplemental Oxygen, DVT Prophylaxis General: Alert, Oriented, Cooperative, Moderate Distress Lungs: Rales. No: Rhonchi, Wheezing Cardiovascular: Regular Rate, Regular Rhythm, No Murmurs GI/Abdominal Exam: Soft, Non-Tender, No Organomegaly, No Distention Extremities: Non-Tender, No Pedal Edema Sepsis Event Note - Evaluation Sepsis Screening Result: Sepsis Risk - Focused Exam Vital Signs: Vital Signs Temp Pulse Resp BP Pulse Ox 01/25/20 13:39 95 01/25/20 12:00 98 F 93 20 128/60 96 01/25/20 09:45 88 L 01/25/20 09:40 88 L 01/25/20 09:26 94 L 01/25/20 07:45 94 L 01/25/20 07:35 98.3 F 84 22 H 136/64 99 - Problem List Review Problem List Initiated/Reviewed/Updated: Yes - Plan Plan:: Assessment and Plan Acute respiratory failure-secondary COVID-19 with bilateral pneumonia. Worsening oxygenation over the last 24 hours recurring increase in supplemental oxygen up to 15 L/min -Continue supplemental oxygen -Consider noninvasive positive pressure ventilation if he has further respirat ory compromise COVID 19 PNA-Patient has lab proved COVID 19 and symptomatically presents as such. Patient is a FULL CODE but does not wish to be kept alive indefinitely if he decompensates and requires intubation. We did obtain consents for Remdesivir, convalescent plasma. -Dexamethasone 6 mg IV q day x 5 days (day 07/25) -Remdesivir 200 mg load followed by 100 mg daily infusion (loaded today - day 07/20) -Completed a 3-day course of convalescent serum -Daily CBC, CMP, CRP, Ferritin, D-dimer, procalcitonin -Discontinue antibiotic therapy, elevated white count is likely secondary to the dexamethasone -Oxygen to keep SpO2 between 90-96% -BCx pending but Negative thus far Disposition: Likely to TCU for acute rehab
[2020-01-25] MEDS ORDERED: cefTRIAXone 1 GM in Sodium Chloride 0.9% 50 ML IV SCH (22:45)
[2020-01-26] MEDS: Dexamethasone 4 MG/ML SDV IVPUSH SCH (11:00)
[2020-01-26] MEDS: Enoxaparin 40 MG/0.4 ML Syringe SUBCUT SCH (11:00)
--- NOTE | 2020-01-26 13:44 | PCM.PN ---
- General Info Date of Service: 01/26/20 Subjective Update: Mr. Whalen has remained relatively stable, continues to require fairly high level of supplemental oxygen. He is not significantly worse over the last 24 hours. Vital signs have been good and he has remained afebrile. Subjectively he reports less shortness of breath and more energy. Functional Status: Reports: Urinating - Review of Systems General: Reports: Weakness, Fatigue. Denies: Fever, Chills Pulmonary: Reports: Shortness of Breath, Cough. Denies: Pleuritic Chest Pain, Sputum, Hemoptysis, Wheezing Cardiovascular: Reports: Dyspnea on Exertion. Denies: Chest Pain, Palpitations, Orthopnea, PND, Edema, Lightheadedness Gastrointestinal: Reports: No Symptoms Genitourinary: Reports: No Symptoms - Patient Data Vitals - Most Recent: Last Vital Signs Temp 97 F 01/26/20 11:03 Pulse 94 01/26/20 11:03 Resp 20 01/26/20 11:03 BP 121/58 L 01/26/20 11:03 Pulse Ox 94 L 01/26/20 13:41 Weight - Most Recent: 167 lb 0.002 oz I&O - Last 24 Hours: Intake & Output 01/25/20 01/26/20 01/26/20 22:59 06:59 14:59 Intake Total 360 Output Total 600 500 Balance -600 -140 Lab Results Last 24 Hours: Laboratory Results - last 24 hr 01/26/20 01/26/20 01/26/20 Range/Units 04:05 04:05 04:05 WBC 16.0 H (4.5-11.0) K/uL RBC 4.38 (4.30-5.90) M/uL Hgb 13.5 (12.0-15.0) g/dL Hct 40.3 (40.0-54.0) % MCV 92 (80-98) fL MCH 31 (27-31) pg MCHC 34 (32-36) % Plt Count 418 H (150-400) K/uL Neut % (Auto) 89 H (36-66) % Lymph % (Auto) 3 L (24-44) % Stanley % (Auto) 9 H (2-6) % Eos % (Auto) 0 L (2-4) % Baso % (Auto) 0 (0-1) % Sodium 138 L (140-148) mmol/L Potassium 4.1 (3.6-5.2) mmol/L Chloride 103 (100-108) mmol/L Carbon Dioxide 26 (21-32) mmol/L Anion Gap 13.1 (5.0-14.0) mmol/L BUN 23 H (7-18) mg/dL Creatinine 1.0 (0.8-1.3) mg/dL Est Cr Clr Drug Dosing 69.78 mL/min Estimated GFR (MDRD) > 60 (>60) Glucose 127 H (74-106) mg/dL Calcium 8.6 (8.5-10.1) mg/dL Ferritin 1464 H (8-388) ng/ml Total Bilirubin 0.4 (0.2-1.0) mg/dL AST 32 (15-37) U/L ALT 184 H (12-78) U/L Alkaline Phosphatase 64 (46-116) U/L C-Reactive Protein 10.87 H (0.0-0.3) mg/dL Total Protein 6.4 (6.4-8.2) g/dL Albumin 2.1 L (3.4-5.0) g/dL Globulin 4.3 H (2.3-3.5) g/dL Albumin/Globulin Ratio 0.5 L (1.2-2.2) Procalcitonin 0.06 ng/mL Joon Results Last 24 Hours: Microbiology 01/21/20 12:05 Aerobic Blood Culture - Final Blood - Venous - Iv Start NO GROWTH AFTER 5 DAYS Anaerobic Blood Culture - Final Staphylococcus Epidermidis 01/21/20 11:50 Aerobic Blood Culture - Final Blood - Arm, Right NO GROWTH AFTER 5 DAYS Anaerobic Blood Culture - Final NO GROWTH AFTER 5 DAYS Med Orders - Current: Current Medications Acetaminophen (Tylenol) 650 mg PO Q4H PRN PRN Reason: Fever Greater Than 101 Last Admin: 01/21/20 13:23 Dose: 650 mg Documented by: Albuterol (Ventolin Hfa) 0 gm INH Q2H PRN PRN Reason: Shortness of Breath Last Admin: 01/24/20 08:38 Dose: 2 puff Documented by: Dexamethasone (Decadron) 6 mg IVPUSH DAILY [facility] Stop: 01/30/20 09:01 Last Admin: 01/26/20 11:00 Dose: 6 mg Documented by: Docusate Sodium (Colace) 100 mg PO BID PRN PRN Reason: Constipation Enoxaparin Sodium (Lovenox) 40 mg SUBCUT DAILY [facility] Last Admin: 01/26/20 11:00 Dose: 40 mg Documented by: Furosemide (Lasix) 20 mg IVPUSH NOW ONE Stop: 01/26/20 14:01 Lorazepam (Ativan) 0.5 mg PO Q4H PRN PRN Reason: Anxiety Melatonin (Melatonin) 6 mg PO BEDTIME PRN PRN Reason: Sleep Last Admin: 01/23/20 21:09 Dose: 6 mg Documented by: Ondansetron HCl (Zofran Odt) 4 mg PO Q6H PRN PRN Reason: Nausea able to take PO Discontinued Medications Diphenhydramine HCl (Benadryl) 25 mg IVPUSH ONCALL ONE Stop: 01/21/20 15:31 Last Admin: 01/21/20 15:33 Dose: 25 mg Documented by: Furosemide (Lasix) 40 mg IVPUSH ONETIME ONE Stop: 01/24/20 09:31 Last Admin: 01/24/20 09:37 Dose: 40 mg Documented by: Remdesivir 100 mg/ Sodium (Chloride) 100 mls @ 100 mls/hr IV Q24H [facility] Stop: 01/25/20 12:59 Last Admin: 01/25/20 11:54 Dose: 100 mls/hr Documented by: Sodium Chloride (Normal Saline) 250 mls @ 20 mls/hr IV ASDIRECTED [facility] Last Admin: 01/21/20 18:11 Dose: 20 mls/hr Documented by: Remdesivir 200 mg/ Sodium (Chloride) 250 mls @ 250 mls/hr IV ONETIME ONE Stop: 01/21/20 12:59 Last Admin: 01/21/20 12:12 Dose: 250 mls/hr Documented by: Ceftriaxone Sodium 1 gm/ (Sodium Chloride) 50 mls @ 100 mls/hr IV Q24H [facility] Last Admin: 01/22/20 23:36 Dose: 100 mls/hr Documented by: Azithromycin 500 mg/ Sodium (Chloride) 250 mls @ 250 mls/hr IV Q24H [facility] Last Admin: 01/24/20 23:21 Dose: 250 mls/hr Documented by: Ceftriaxone Sodium 1 gm/ (Sodium Chloride) 50 mls @ 100 mls/hr IV Q24H [facility] Last Admin: 01/24/20 22:49 Dose: 100 mls/hr Documented by: Ceftriaxone Sodium 1 gm/ (Sodium Chloride) 50 mls @ 600 mls/hr IV Q24H [facility] Potassium Chloride (Klor-Con M20) 40 meq PO ONETIME ONE Stop: 01/25/20 10:01 Last Admin: 01/25/20 11:59 Dose: 40 meq Documented by: - Exam Quality Assessment: Supplemental Oxygen, DVT Prophylaxis General: Alert, Oriented, Cooperative, Moderate Distress Lungs: Rales. No: Crackles, Rhonchi, Wheezing Cardiovascular: Regular Rate, Regular Rhythm, No Murmurs GI/Abdominal Exam: Soft, Non-Tender, No Organomegaly, No Distention Extremities: Non-Tender, No Pedal Edema Sepsis Event Note - Evaluation Sepsis Screening Result: Sepsis Risk - Focused Exam Vital Signs: Vital Signs Temp Pulse Resp BP Pulse Ox 01/26/20 13:41 94 L 01/26/20 11:03 97 F 94 20 121/58 L 97 01/26/20 07:32 91 L 01/26/20 07:11 96.4 F L 78 18 129/66 92 L 01/26/20 04:03 98.1 F 67 18 119/80 95 01/26/20 01:45 95 - Problem List Review Problem List Initiated/Reviewed/Updated: Yes - My Orders Last 24 Hours: My Active Orders 01/25/20 17:06 Convert IV to Saline Lock [OM.PC] Routine 01/26/20 14:00 Furosemide [Lasix] 20 mg IVPUSH NOW ONE 01/27/20 05:00 CBC WITH AUTO DIFF [HEME] Timed COMPREHENSIVE METABOLIC PN,CMP [CHEM] Timed 01/27/20 05:11 CRP [C-REACTIVE PROTEIN] [CHEM] AM D Dimer [D-DIMER QUANTITATIVE] [COAG] AM FERRITIN [CHEM] AM - Plan Plan:: Assessment and Plan Acute respiratory failure-secondary COVID-19 with bilateral pneumonia. Continues to require high level of respiratory support but has not worsened significantly over the last 24 hours. -Continue supplemental oxygen -Consider noninvasive positive pressure ventilation if he has further respiratory compromise COVID 19 PNA-Patient has lab proved COVID 19 and symptomatically presents as such. Patient is a FULL CODE but does not wish to be kept alive indefinitely if he decompensates and requires intubation. -Dexamethasone 6 mg IV q day x 5 days (day 08/25) -Remdesivir completed a 5-day course -Completed a 3-day course of convalescent serum -Furosemide 20 mg IV today -Daily CBC, CMP, CRP, Ferritin, D-dimer, procalcitonin -Discontinue antibiotic therapy, elevated white count is likely secondary to the dexamethasone -Oxygen to keep SpO2 between 90-96% -BCx pending but Negative thus far Disposition: Likely to TCU for acute rehab
[2020-01-26] MEDS ORDERED: Furosemide 20 MG/2 ML VIAL IVPUSH ONE (14:00)
[2020-01-27] MEDS: Enoxaparin 40 MG/0.4 ML Syringe SUBCUT SCH (08:32)
[2020-01-27] MEDS: Dexamethasone 4 MG/ML SDV IVPUSH SCH (08:32)
--- NOTE | 2020-01-27 10:16 | PCM.PN ---
- General Info Date of Service: 01/27/20 Subjective Update: Mr. Whalen has been stable over the last 24 hours with improvement in respiratory status and oxygenation. Energy level improved as has his appetite. He has been able to ambulate around the room and is requiring less supplemental oxygen. - Review of Systems General: Reports: Weakness, Fatigue. Denies: Fever, Chills Pulmonary: Reports: Shortness of Breath, Cough. Denies: Pleuritic Chest Pain, Sputum, Hemoptysis, Wheezing Cardiovascular: Reports: Dyspnea on Exertion. Denies: Chest Pain, Palpitations, Orthopnea, PND, Edema, Lightheadedness Gastrointestinal: Reports: No Symptoms Genitourinary: Reports: No Symptoms - Patient Data Vitals - Most Recent: Last Vital Signs Temp 96.3 F L 01/27/20 08:29 Pulse 86 01/27/20 08:29 Resp 18 01/27/20 08:29 BP 103/69 01/27/20 08:29 Pulse Ox 93 L 01/27/20 08:29 Weight - Most Recent: 167 lb 0.002 oz I&O - Last 24 Hours: Intake & Output 01/26/20 01/27/20 01/27/20 22:59 06:59 14:59 Intake Total 610 800 Output Total 2000 1200 Balance -1390 -400 Lab Results Last 24 Hours: Laboratory Results - last 24 hr 01/27/20 01/27/20 01/27/20 Range/Units 06:02 06:02 06:02 WBC 17.2 H (4.5-11.0) K/uL RBC 4.81 (4.30-5.90) M/uL Hgb 14.7 (12.0-15.0) g/dL Hct 43.7 (40.0-54.0) % MCV 91 (80-98) fL MCH 31 (27-31) pg MCHC 34 (32-36) % Plt Count 502 H (150-400) K/uL Add Manual Diff Yes Neutrophils % (Manual) 84 H (36-66) % Band Neutrophils % 2 L (5-11) % Lymphocytes % (Manual) 7 L (24-44) % Monocytes % (Manual) 7 H (2-6) % D-Dimer, Quantitative 4087.72 H (0.0-500.0) ng/mL Sodium 137 L (140-148) mmol/L Potassium 4.2 (3.6-5.2) mmol/L Chloride 102 (100-108) mmol/L Carbon Dioxide 25 (21-32) mmol/L Anion Gap 14.2 H (5.0-14.0) mmol/L BUN 25 H (7-18) mg/dL Creatinine 0.9 (0.8-1.3) mg/dL Est Cr Clr Drug Dosing 77.54 mL/min Estimated GFR (MDRD) > 60 (>60) Glucose 110 H (74-106) mg/dL Calcium 9.0 (8.5-10.1) mg/dL Ferritin (8-388) ng/ml Total Bilirubin 0.7 D (0.2-1.0) mg/dL AST 27 (15-37) U/L ALT 164 H (12-78) U/L Alkaline Phosphatase 69 (46-116) U/L C-Reactive Protein (0.0-0.3) mg/dL Total Protein 7.1 (6.4-8.2) g/dL Albumin 2.4 L (3.4-5.0) g/dL Globulin 4.7 H (2.3-3.5) g/dL Albumin/Globulin Ratio 0.5 L (1.2-2.2) 01/27/20 Range/Units 06:02 WBC (4.5-11.0) K/uL RBC (4.30-5.90) M/uL Hgb (12.0-15.0) g/dL Hct (40.0-54.0) % MCV (80-98) fL MCH (27-31) pg MCHC (32-36) % Plt Count (150-400) K/uL Add Manual Diff Neutrophils % (Manual) (36-66) % Band Neutrophils % (5-11) % Lymphocytes % (Manual) (24-44) % Monocytes % (Manual) (2-6) % D-Dimer, Quantitative (0.0-500.0) ng/mL Sodium (140-148) mmol/L Potassium (3.6-5.2) mmol/L Chloride (100-108) mmol/L Carbon Dioxide (21-32) mmol/L Anion Gap (5.0-14.0) mmol/L BUN (7-18) mg/dL Creatinine (0.8-1.3) mg/dL Est Cr Clr Drug Dosing mL/min Estimated GFR (MDRD) (>60) Glucose (74-106) mg/dL Calcium (8.5-10.1) mg/dL Ferritin 1493 H (8-388) ng/ml Total Bilirubin (0.2-1.0) mg/dL AST (15-37) U/L ALT (12-78) U/L Alkaline Phosphatase (46-116) U/L C-Reactive Protein 8.51 H (0.0-0.3) mg/dL Total Protein (6.4-8.2) g/dL Albumin (3.4-5.0) g/dL Globulin (2.3-3.5) g/dL Albumin/Globulin Ratio (1.2-2.2) Joon Results Last 24 Hours: Microbiology 01/21/20 12:05 Aerobic Blood Culture - Final Blood - Venous - Iv Start NO GROWTH AFTER 5 DAYS Anaerobic Blood Culture - Final Staphylococcus Epidermidis 01/21/20 11:50 Aerobic Blood Culture - Final Blood - Arm, Right NO GROWTH AFTER 5 DAYS Anaerobic Blood Culture - Final NO GROWTH AFTER 5 DAYS Med Orders - Current: Current Medications Acetaminophen (Tylenol) 650 mg PO Q4H PRN PRN Reason: Fever Greater Than 101 Last Admin: 01/21/20 13:23 Dose: 650 mg Documented by: Albuterol (Ventolin Hfa) 0 gm INH Q2H PRN PRN Reason: Shortness of Breath Last Admin: 01/24/20 08:38 Dose: 2 puff Documented by: Dexamethasone (Decadron) 6 mg IVPUSH DAILY [facility] Stop: 01/30/20 09:01 Last Admin: 01/27/20 08:32 Dose: 6 mg Documented by: Docusate Sodium (Colace) 100 mg PO BID PRN PRN Reason: Constipation Enoxaparin Sodium (Lovenox) 40 mg SUBCUT DAILY [facility] Last Admin: 01/27/20 08:32 Dose: 40 mg Documented by: Furosemide (Lasix) 20 mg IVPUSH NOW ONE Stop: 01/27/20 10:14 Lorazepam (Ativan) 0.5 mg PO Q4H PRN PRN Reason: Anxiety Melatonin (Melatonin) 6 mg PO BEDTIME PRN PRN Reason: Sleep Last Admin: 01/23/20 21:09 Dose: 6 mg Documented by: Ondansetron HCl (Zofran Odt) 4 mg PO Q6H PRN PRN Reason: Nausea able to take PO Discontinued Medications Diphenhydramine HCl (Benadryl) 25 mg IVPUSH ONCALL ONE Stop: 01/21/20 15:31 Last Admin: 01/21/20 15:33 Dose: 25 mg Documented by: Furosemide (Lasix) 40 mg IVPUSH ONETIME ONE Stop: 01/24/20 09:31 Last Admin: 01/24/20 09:37 Dose: 40 mg Documented by: Furosemide (Lasix) 20 mg IVPUSH NOW ONE Stop: 01/26/20 14:01 Last Admin: 01/26/20 15:36 Dose: 20 mg Documented by: Remdesivir 100 mg/ Sodium (Chloride) 100 mls @ 100 mls/hr IV Q24H [facility] Stop: 01/25/20 12:59 Last Admin: 01/25/20 11:54 Dose: 100 mls/hr Documented by: Sodium Chloride (Normal Saline) 250 mls @ 20 mls/hr IV ASDIRECTED [facility] Last Admin: 01/21/20 18:11 Dose: 20 mls/hr Documented by: Remdesivir 200 mg/ Sodium (Chloride) 250 mls @ 250 mls/hr IV ONETIME ONE Stop: 01/21/20 12:59 Last Admin: 01/21/20 12:12 Dose: 250 mls/hr Documented by: Ceftriaxone Sodium 1 gm/ (Sodium Chloride) 50 mls @ 100 mls/hr IV Q24H [facility] Last Admin: 01/22/20 23:36 Dose: 100 mls/hr Documented by: Azithromycin 500 mg/ Sodium (Chloride) 250 mls @ 250 mls/hr IV Q24H [facility] Last Admin: 01/24/20 23:21 Dose: 250 mls/hr Documented by: Ceftriaxone Sodium 1 gm/ (Sodium Chloride) 50 mls @ 100 mls/hr IV Q24H [facility] Last Admin: 01/24/20 22:49 Dose: 100 mls/hr Documented by: Ceftriaxone Sodium 1 gm/ (Sodium Chloride) 50 mls @ 600 mls/hr IV Q24H [facility] Potassium Chloride (Klor-Con M20) 40 meq PO ONETIME ONE Stop: 01/25/20 10:01 Last Admin: 01/25/20 11:59 Dose: 40 meq Documented by: - Exam Quality Assessment: Supplemental Oxygen, DVT Prophylaxis General: Alert, Oriented, Cooperative, Mild Distress Lungs: Clear to Auscultation, Normal Respiratory Effort Cardiovascular: Regular Rate, Regular Rhythm, No Murmurs GI/Abdominal Exam: Soft, Non-Tender, No Organomegaly, No Distention Extremities: Non-Tender, No Pedal Edema Sepsis Event Note - Evaluation Sepsis Screening Result: Sepsis Risk - Focused Exam Vital Signs: Vital Signs Temp Pulse Resp BP BP Pulse Ox 01/27/20 08:29 96.3 F L 86 18 103/69 93 L 01/27/20 07:00 94 L 01/27/20 03:11 96.3 F L 66 16 126/66 96 01/27/20 01:32 95 01/26/20 23:36 96.1 F L 75 17 127/70 93 L - Problem List Review Problem List Initiated/Reviewed/Updated: Yes - My Orders Last 24 Hours: My Active Orders 01/27/20 10:13 Furosemide [Lasix] 20 mg IVPUSH NOW ONE 01/28/20 05:00 CBC WITH AUTO DIFF [HEME] Timed COMPREHENSIVE METABOLIC PN,CMP [CHEM] Timed 01/28/20 05:11 CRP [C-REACTIVE PROTEIN] [CHEM] AM D Dimer [D-DIMER QUANTITATIVE] [COAG] AM FERRITIN [CHEM] AM - Plan Plan:: Assessment and Plan Acute respiratory failure-secondary COVID-19 with bilateral pneumonia. Respiratory status has improved over the last 24 hours, able to be more active, requiring less supplemental oxygen -Continue supplemental oxygen COVID 19 PNA-Patient has lab proved COVID 19 and symptomatically presents as such. Patient is a FULL CODE but does not wish to be kept alive indefinitely if he decompensates and requires intubation. -Dexamethasone 6 mg IV q day x 10 days (day 7) -Remdesivir completed a 5-day course -Completed a 3-day course of convalescent serum -Furosemide 20 mg IV today -Daily CBC, CMP, CRP, Ferritin, D-dimer, procalcitonin -Discontinue antibiotic therapy, elevated white count is likely secondary to the dexamethasone -Oxygen to keep SpO2 between 90-96% -BCx pending but Negative thus far Disposition: Likely to TCU for acute rehab
[2020-01-27] MEDS ORDERED: Furosemide 20 MG/2 ML VIAL IVPUSH ONE (10:30)
[2020-01-27] MEDS ORDERED: Polyethylene Glycol 3350 Powder 17 GM Packet PO ONE (14:00)
[2020-01-27] MEDS: Acetaminophen 325 MG Tab PO PRN (23:48)
[2020-01-28] MEDS: Dexamethasone 4 MG/ML SDV IVPUSH SCH (09:50)
[2020-01-28] MEDS: Enoxaparin 40 MG/0.4 ML Syringe SUBCUT SCH (09:51)
[2020-01-28] MEDS: Acetaminophen 325 MG Tab PO PRN (11:47)
--- NOTE | 2020-01-28 19:34 | PCM.PN ---
- General Info Date of Service: 01/28/20 Subjective Update: Mr. Whalen on further modest improvement over the last 24 hours, he reports less shortness of breath and cough. Requiring less supplemental oxygen to maintain adequate saturations. Vital signs have remained stable and he has been afebrile. Functional Status: Reports: Tolerating Diet, Ambulating, Urinating - Review of Systems General: Reports: Weakness, Fatigue. Denies: Fever, Chills Pulmonary: Reports: Shortness of Breath, Cough. Denies: Pleuritic Chest Pain, Sputum, Hemoptysis, Wheezing Cardiovascular: Reports: Dyspnea on Exertion. Denies: Chest Pain, Palpitations, Orthopnea, PND, Edema, Lightheadedness Gastrointestinal: Reports: No Symptoms - Patient Data Vitals - Most Recent: Last Vital Signs Temp 96.8 F L 01/28/20 14:31 Pulse 93 01/28/20 14:31 Resp 18 01/28/20 14:31 BP 111/59 L 01/28/20 14:31 Pulse Ox 94 L 01/28/20 18:00 Weight - Most Recent: 167 lb 0.002 oz I&O - Last 24 Hours: Intake & Output 01/28/20 01/28/20 01/28/20 06:59 14:59 22:59 Intake Total 0708 891 2054 Output Total 600 400 Balance 400 -160 1000 Lab Results Last 24 Hours: Laboratory Results - last 24 hr 01/28/20 01/28/20 01/28/20 Range/Units 04:20 04:20 04:20 WBC 17.3 H (4.5-11.0) K/uL RBC 4.38 (4.30-5.90) M/uL Hgb 13.5 (12.0-15.0) g/dL Hct 39.9 L (40.0-54.0) % MCV 91 (80-98) fL MCH 31 (27-31) pg MCHC 34 (32-36) % Plt Count 494 H (150-400) K/uL Neut % (Auto) 83 H (36-66) % Lymph % (Auto) 4 L (24-44) % [place] % (Auto) 13 H (2-6) % Eos % (Auto) 0 L (2-4) % Baso % (Auto) 0 (0-1) % D-Dimer, Quantitative 2250.64 H (0.0-500.0) ng/mL Sodium 135 L (140-148) mmol/L Potassium 4.4 (3.6-5.2) mmol/L Chloride 100 (100-108) mmol/L Carbon Dioxide 25 (21-32) mmol/L Anion Gap 14.4 H (5.0-14.0) mmol/L BUN 31 H (7-18) mg/dL Creatinine 1.0 (0.8-1.3) mg/dL Est Cr Clr Drug Dosing 69.78 mL/min Estimated GFR (MDRD) > 60 (>60) Glucose 103 (74-106) mg/dL Calcium 8.5 (8.5-10.1) mg/dL Ferritin (8-388) ng/ml Total Bilirubin 0.6 (0.2-1.0) mg/dL AST 34 (15-37) U/L ALT 143 H (12-78) U/L Alkaline Phosphatase 65 (46-116) U/L C-Reactive Protein (0.0-0.3) mg/dL Total Protein 6.4 (6.4-8.2) g/dL Albumin 2.1 L (3.4-5.0) g/dL Globulin 4.3 H (2.3-3.5) g/dL Albumin/Globulin Ratio 0.5 L (1.2-2.2) 01/28/20 Range/Units 04:20 WBC (4.5-11.0) K/uL RBC (4.30-5.90) M/uL Hgb (12.0-15.0) g/dL Hct (40.0-54.0) % MCV (80-98) fL MCH (27-31) pg MCHC (32-36) % Plt Count (150-400) K/uL Neut % (Auto) (36-66) % Lymph % (Auto) (24-44) % [place] % (Auto) (2-6) % Eos % (Auto) (2-4) % Baso % (Auto) (0-1) % D-Dimer, Quantitative (0.0-500.0) ng/mL Sodium (140-148) mmol/L Potassium (3.6-5.2) mmol/L Chloride (100-108) mmol/L Carbon Dioxide (21-32) mmol/L Anion Gap (5.0-14.0) mmol/L BUN (7-18) mg/dL Creatinine (0.8-1.3) mg/dL Est Cr Clr Drug Dosing mL/min Estimated GFR (MDRD) (>60) Glucose (74-106) mg/dL Calcium (8.5-10.1) mg/dL Ferritin 1452 H (8-388) ng/ml Total Bilirubin (0.2-1.0) mg/dL AST (15-37) U/L ALT (12-78) U/L Alkaline Phosphatase (46-116) U/L C-Reactive Protein 4.72 H (0.0-0.3) mg/dL Total Protein (6.4-8.2) g/dL Albumin (3.4-5.0) g/dL Globulin (2.3-3.5) g/dL Albumin/Globulin Ratio (1.2-2.2) Med Orders - Current: Current Medications Acetaminophen (Tylenol) 650 mg PO Q4H PRN PRN Reason: Fever Greater Than 101 Last Admin: 01/28/20 11:47 Dose: 650 mg Documented by: Albuterol (Ventolin Hfa) 0 gm INH Q2H PRN PRN Reason: Shortness of Breath Last Admin: 01/24/20 08:38 Dose: 2 puff Documented by: Artificial Tears (Genteal Mild To Moderate Ophth Soln) 0 ml EYEBOTH Q1H PRN PRN Reason: Dry Eyes Calcium Carbonate/Glycine (Tums) 500 mg PO Q2H PRN PRN Reason: Indigestion Dexamethasone (Decadron) 6 mg IVPUSH DAILY [facility] Stop: 01/30/20 09:01 Last Admin: 01/28/20 09:50 Dose: 6 mg Documented by: Docusate Sodium (Colace) 100 mg PO BID PRN PRN Reason: Constipation Enoxaparin Sodium (Lovenox) 40 mg SUBCUT DAILY [facility] Last Admin: 01/28/20 09:51 Dose: 40 mg Documented by: Lorazepam (Ativan) 0.5 mg PO Q4H PRN PRN Reason: Anxiety Melatonin (Melatonin) 9 mg PO BEDTIME PRN PRN Reason: Sleep Ondansetron HCl (Zofran Odt) 4 mg PO Q6H PRN PRN Reason: Nausea able to take PO Discontinued Medications Diphenhydramine HCl (Benadryl) 25 mg IVPUSH ONCALL ONE Stop: 01/21/20 15:31 Last Admin: 01/21/20 15:33 Dose: 25 mg Documented by: Furosemide (Lasix) 40 mg IVPUSH ONETIME ONE Stop: 01/24/20 09:31 Last Admin: 01/24/20 09:37 Dose: 40 mg Documented by: Furosemide (Lasix) 20 mg IVPUSH NOW ONE Stop: 01/26/20 14:01 Last Admin: 01/26/20 15:36 Dose: 20 mg Documented by: Furosemide (Lasix) 20 mg IVPUSH NOW ONE Stop: 01/27/20 10:31 Last Admin: 01/27/20 11:02 Dose: 20 mg Documented by: Remdesivir 100 mg/ Sodium (Chloride) 100 mls @ 100 mls/hr IV Q24H [facility] Stop: 01/25/20 12:59 Last Admin: 01/25/20 11:54 Dose: 100 mls/hr Documented by: Sodium Chloride (Normal Saline) 250 mls @ 20 mls/hr IV ASDIRECTED [facility] Last Admin: 01/21/20 18:11 Dose: 20 mls/hr Documented by: Remdesivir 200 mg/ Sodium (Chloride) 250 mls @ 250 mls/hr IV ONETIME ONE Stop: 01/21/20 12:59 Last Admin: 01/21/20 12:12 Dose: 250 mls/hr Documented by: Ceftriaxone Sodium 1 gm/ (Sodium Chloride) 50 mls @ 100 mls/hr IV Q24H [facility] Last Admin: 01/22/20 23:36 Dose: 100 mls/hr Documented by: Azithromycin 500 mg/ Sodium (Chloride) 250 mls @ 250 mls/hr IV Q24H [facility] Last Admin: 01/24/20 23:21 Dose: 250 mls/hr Documented by: Ceftriaxone Sodium 1 gm/ (Sodium Chloride) 50 mls @ 100 mls/hr IV Q24H [facility] Last Admin: 01/24/20 22:49 Dose: 100 mls/hr Documented by: Ceftriaxone Sodium 1 gm/ (Sodium Chloride) 50 mls @ 600 mls/hr IV Q24H [facility] Melatonin (Melatonin) 6 mg PO BEDTIME PRN PRN Reason: Sleep Last Admin: 01/23/20 21:09 Dose: 6 mg Documented by: Polyethylene Glycol (Miralax) 34 gm PO ONETIME ONE Stop: 01/27/20 14:01 Last Admin: 01/27/20 14:08 Dose: 34 gm Documented by: Potassium Chloride (Klor-Con M20) 40 meq PO ONETIME ONE Stop: 01/25/20 10:01 Last Admin: 01/25/20 11:59 Dose: 40 meq Documented by: - Exam Quality Assessment: Supplemental Oxygen, DVT Prophylaxis General: Alert, Oriented, Cooperative, Moderate Distress Lungs: Normal Respiratory Effort, Rales. No: Crackles, Rhonchi, Wheezing Cardiovascular: Regular Rate, Regular Rhythm, No Murmurs GI/Abdominal Exam: Soft, Non-Tender, No Organomegaly, No Distention Extremities: Non-Tender, No Pedal Edema Sepsis Event Note - Evaluation Sepsis Screening Result: No Definite Risk - Focused Exam Vital Signs: Vital Signs Temp Pulse Resp BP BP Pulse Ox 01/28/20 18:00 94 L 01/28/20 14:31 96.8 F L 93 18 111/59 L 96 01/28/20 10:28 97.2 F 87 16 109/55 L 96 - Problem List Review Problem List Initiated/Reviewed/Updated: Yes - My Orders Last 24 Hours: My Active Orders 01/28/20 12:09 Hypromellose [GenTeal Mild to Moderate Ophth Soln] See Dose Instructions EYEBOTH Q1H PRN 01/28/20 12:10 Melatonin 9 mg PO BEDTIME PRN 01/28/20 18:59 Calcium Carbonate [Tums] 500 mg PO Q2H PRN 01/29/20 05:00 CBC WITH AUTO DIFF [HEME] Timed COMPREHENSIVE METABOLIC PN,CMP [CHEM] Timed 01/29/20 05:11 CRP [C-REACTIVE PROTEIN] [CHEM] AM D Dimer [D-DIMER QUANTITATIVE] [COAG] AM FERRITIN [CHEM] AM - Plan Plan:: Assessment and Plan Acute respiratory failure-secondary COVID-19 with bilateral pneumonia. Respiratory status has improved over the last 24 hours, able to be more active, requiring less supplemental oxygen -Continue supplemental oxygen COVID 19 PNA-slow improvement in symptoms over the past few days -Dexamethasone 6 mg IV q day x 10 days (day 8) -Remdesivir completed a 5-day course -Completed a 3-day course of convalescent serum -Daily CBC, CMP, CRP, Ferritin, D-dimer, procalcitonin -elevated white count is likely secondary to the dexamethasone -Oxygen to keep SpO2 between 90-96% Disposition: Likely to TCU for acute rehab
[2020-01-28] MEDS: Calcium Carbonate 500 MG Tab.Chew PO PRN (20:17)
[2020-01-28] MEDS: Melatonin 3 MG Tab PO PRN (22:21)
[2020-01-29] MEDS: Dexamethasone 4 MG/ML SDV IVPUSH SCH (08:07)
[2020-01-29] MEDS: Enoxaparin 40 MG/0.4 ML Syringe SUBCUT SCH (09:58)
[2020-01-29] MEDS ORDERED: Furosemide 20 MG/2 ML VIAL IVPUSH ONE (10:00)
--- NOTE | 2020-01-29 15:25 | PCM.PN ---
- General Info Date of Service: 01/29/20 Subjective Update: Mr. Whalen has shown further improvement over the last 24 hours. Supplemental oxygen is now down to 2 to 4 L/min via nasal cannula. Overall strength and appetite have improved. He has been able to ambulate in the hallways with use of his supplemental oxygen. Functional Status: Reports: Tolerating Diet, Ambulating, Urinating - Review of Systems General: Reports: Weakness, Fatigue. Denies: Fever, Chills Pulmonary: Reports: Shortness of Breath, Cough. Denies: Pleuritic Chest Pain, Sputum, Hemoptysis, Wheezing Cardiovascular: Reports: Dyspnea on Exertion. Denies: Chest Pain, Palpitations, Orthopnea, PND, Edema, Lightheadedness Gastrointestinal: Reports: No Symptoms - Patient Data Vitals - Most Recent: Last Vital Signs Temp 97.1 F 01/29/20 10:59 Pulse 86 01/29/20 10:59 Resp 16 01/29/20 08:16 BP 110/55 L 01/29/20 10:59 Pulse Ox 94 L 01/29/20 12:24 Weight - Most Recent: 167 lb 0.002 oz I&O - Last 24 Hours: Intake & Output 01/29/20 01/29/20 01/29/20 06:59 14:59 22:59 Intake Total 200 300 Output Total 1150 Balance -950 300 Lab Results Last 24 Hours: Laboratory Results - last 24 hr 01/29/20 01/29/20 01/29/20 Range/Units 04:50 04:50 04:50 WBC 15.3 H (4.5-11.0) K/uL RBC 4.35 (4.30-5.90) M/uL Hgb 13.4 (12.0-15.0) g/dL Hct 40.0 (40.0-54.0) % MCV 92 (80-98) fL MCH 31 (27-31) pg MCHC 34 (32-36) % Plt Count 492 H (150-400) K/uL Neut % (Auto) 84 H (36-66) % Lymph % (Auto) 4 L (24-44) % [place] % (Auto) 12 H (2-6) % Eos % (Auto) 0 L (2-4) % Baso % (Auto) 0 (0-1) % D-Dimer, Quantitative 1890.65 H (0.0-500.0) ng/mL Sodium 135 L (140-148) mmol/L Potassium 4.4 (3.6-5.2) mmol/L Chloride 103 (100-108) mmol/L Carbon Dioxide 25 (21-32) mmol/L Anion Gap 11.4 (5.0-14.0) mmol/L BUN 29 H (7-18) mg/dL Creatinine 0.9 (0.8-1.3) mg/dL Est Cr Clr Drug Dosing 77.54 mL/min Estimated GFR (MDRD) > 60 (>60) Glucose 98 (74-106) mg/dL Calcium 8.4 L (8.5-10.1) mg/dL Ferritin (8-388) ng/ml Total Bilirubin 0.5 (0.2-1.0) mg/dL AST 21 (15-37) U/L ALT 117 H (12-78) U/L Alkaline Phosphatase 60 (46-116) U/L C-Reactive Protein (0.0-0.3) mg/dL Total Protein 6.1 L (6.4-8.2) g/dL Albumin 2.0 L (3.4-5.0) g/dL Globulin 4.1 H (2.3-3.5) g/dL Albumin/Globulin Ratio 0.5 L (1.2-2.2) 01/29/20 Range/Units 04:50 WBC (4.5-11.0) K/uL RBC (4.30-5.90) M/uL Hgb (12.0-15.0) g/dL Hct (40.0-54.0) % MCV (80-98) fL MCH (27-31) pg MCHC (32-36) % Plt Count (150-400) K/uL Neut % (Auto) (36-66) % Lymph % (Auto) (24-44) % [place] % (Auto) (2-6) % Eos % (Auto) (2-4) % Baso % (Auto) (0-1) % D-Dimer, Quantitative (0.0-500.0) ng/mL Sodium (140-148) mmol/L Potassium (3.6-5.2) mmol/L Chloride (100-108) mmol/L Carbon Dioxide (21-32) mmol/L Anion Gap (5.0-14.0) mmol/L BUN (7-18) mg/dL Creatinine (0.8-1.3) mg/dL Est Cr Clr Drug Dosing mL/min Estimated GFR (MDRD) (>60) Glucose (74-106) mg/dL Calcium (8.5-10.1) mg/dL Ferritin 946 H (8-388) ng/ml Total Bilirubin (0.2-1.0) mg/dL AST (15-37) U/L ALT (12-78) U/L Alkaline Phosphatase (46-116) U/L C-Reactive Protein 2.83 H (0.0-0.3) mg/dL Total Protein (6.4-8.2) g/dL Albumin (3.4-5.0) g/dL Globulin (2.3-3.5) g/dL Albumin/Globulin Ratio (1.2-2.2) Med Orders - Current: Current Medications Acetaminophen (Tylenol) 650 mg PO Q4H PRN PRN Reason: Fever Greater Than 101 Last Admin: 01/28/20 11:47 Dose: 650 mg Documented by: Albuterol (Ventolin Hfa) 0 gm INH Q2H PRN PRN Reason: Shortness of Breath Last Admin: 01/24/20 08:38 Dose: 2 puff Documented by: Artificial Tears (Genteal Mild To Moderate Ophth Soln) 0 ml EYEBOTH Q1H PRN PRN Reason: Dry Eyes Calcium Carbonate/Glycine (Tums) 500 mg PO Q2H PRN PRN Reason: Indigestion Last Admin: 01/28/20 20:17 Dose: 500 mg Documented by: Dexamethasone (Decadron) 6 mg IVPUSH DAILY [facility] Stop: 01/30/20 09:01 Last Admin: 01/29/20 08:07 Dose: 6 mg Documented by: Docusate Sodium (Colace) 100 mg PO BID PRN PRN Reason: Constipation Enoxaparin Sodium (Lovenox) 40 mg SUBCUT DAILY [facility] Last Admin: 01/29/20 09:58 Dose: 40 mg Documented by: Lorazepam (Ativan) 0.5 mg PO Q4H PRN PRN Reason: Anxiety Melatonin (Melatonin) 9 mg PO BEDTIME PRN PRN Reason: Sleep Last Admin: 01/28/20 22:21 Dose: 9 mg Documented by: Ondansetron HCl (Zofran Odt) 4 mg PO Q6H PRN PRN Reason: Nausea able to take PO Discontinued Medications Diphenhydramine HCl (Benadryl) 25 mg IVPUSH ONCALL ONE Stop: 01/21/20 15:31 Last Admin: 01/21/20 15:33 Dose: 25 mg Documented by: Furosemide (Lasix) 40 mg IVPUSH ONETIME ONE Stop: 01/24/20 09:31 Last Admin: 01/24/20 09:37 Dose: 40 mg Documented by: Furosemide (Lasix) 20 mg IVPUSH NOW ONE Stop: 01/26/20 14:01 Last Admin: 01/26/20 15:36 Dose: 20 mg Documented by: Furosemide (Lasix) 20 mg IVPUSH NOW ONE Stop: 01/27/20 10:31 Last Admin: 01/27/20 11:02 Dose: 20 mg Documented by: Furosemide (Lasix) 20 mg IVPUSH NOW ONE Stop: 01/29/20 10:01 Last Admin: 01/29/20 11:04 Dose: 20 mg Documented by: Remdesivir 100 mg/ Sodium (Chloride) 100 mls @ 100 mls/hr IV Q24H [facility] Stop: 01/25/20 12:59 Last Admin: 01/25/20 11:54 Dose: 100 mls/hr Documented by: Sodium Chloride (Normal Saline) 250 mls @ 20 mls/hr IV ASDIRECTED [facility] Last Admin: 01/21/20 18:11 Dose: 20 mls/hr Documented by: Remdesivir 200 mg/ Sodium (Chloride) 250 mls @ 250 mls/hr IV ONETIME ONE Stop: 01/21/20 12:59 Last Admin: 01/21/20 12:12 Dose: 250 mls/hr Documented by: Ceftriaxone Sodium 1 gm/ (Sodium Chloride) 50 mls @ 100 mls/hr IV Q24H [facility] Last Admin: 01/22/20 23:36 Dose: 100 mls/hr Documented by: Azithromycin 500 mg/ Sodium (Chloride) 250 mls @ 250 mls/hr IV Q24H [facility] Last Admin: 01/24/20 23:21 Dose: 250 mls/hr Documented by: Ceftriaxone Sodium 1 gm/ (Sodium Chloride) 50 mls @ 100 mls/hr IV Q24H [facility] Last Admin: 01/24/20 22:49 Dose: 100 mls/hr Documented by: Ceftriaxone Sodium 1 gm/ (Sodium Chloride) 50 mls @ 600 mls/hr IV Q24H [facility] Melatonin (Melatonin) 6 mg PO BEDTIME PRN PRN Reason: Sleep Last Admin: 01/23/20 21:09 Dose: 6 mg Documented by: Polyethylene Glycol (Miralax) 34 gm PO ONETIME ONE Stop: 01/27/20 14:01 Last Admin: 01/27/20 14:08 Dose: 34 gm Documented by: Potassium Chloride (Klor-Con M20) 40 meq PO ONETIME ONE Stop: 01/25/20 10:01 Last Admin: 01/25/20 11:59 Dose: 40 meq Documented by: - Exam Quality Assessment: Supplemental Oxygen, DVT Prophylaxis General: Alert, Oriented, Cooperative, Mild Distress Lungs: Clear to Auscultation, Normal Respiratory Effort. No: Crackles, Rales, Rhonchi, Wheezing Cardiovascular: Regular Rate, Regular Rhythm, No Murmurs GI/Abdominal Exam: Soft, Non-Tender, No Organomegaly, No Distention Extremities: Non-Tender, No Pedal Edema Sepsis Event Note - Evaluation Sepsis Screening Result: No Definite Risk - Focused Exam Vital Signs: Vital Signs Temp Pulse Resp BP Pulse Ox 01/29/20 12:24 94 L 01/29/20 10:59 97.1 F 86 110/55 L 94 L 01/29/20 08:16 16 91 L 01/29/20 07:47 97.3 F 70 16 116/62 93 L 01/29/20 07:21 94 L 01/29/20 04:25 95.9 F L 18 114/59 L 95 - Problem List Review Problem List Initiated/Reviewed/Updated: Yes - My Orders Last 24 Hours: My Active Orders 01/28/20 18:59 Calcium Carbonate [Tums] 500 mg PO Q2H PRN 01/30/20 05:00 CBC WITH AUTO DIFF [HEME] Timed COMPREHENSIVE METABOLIC PN,CMP [CHEM] Timed 01/30/20 05:11 CRP [C-REACTIVE PROTEIN] [CHEM] AM D Dimer [D-DIMER QUANTITATIVE] [COAG] AM FERRITIN [CHEM] AM - Plan Plan:: Assessment and Plan Acute respiratory failure-secondary COVID-19 with bilateral pneumonia. Further good improvement in oxygenation over the last 24 hours -Continue supplemental oxygen COVID 19 PNA-slow improvement in symptoms over the past few days -Dexamethasone 6 mg IV q day x 10 days (day 11/25) -Remdesivir completed a 5-day course -Completed a 3-day course of convalescent serum -Daily CBC, CMP, CRP, Ferritin, D-dimer, procalcitonin -elevated white count is likely secondary to the dexamethasone -Oxygen to keep SpO2 between 90-96% Disposition: Plan for discharged home in 2 to 3 days
[2020-01-29] MEDS: Hypromellose 0.3% Ophth Soln 15 ML Bottle EYEBOTH PRN ×2 (17:11→22:00)
[2020-01-29] MEDS: Calcium Carbonate 500 MG Tab.Chew PO PRN (20:26)
[2020-01-29] MEDS: Melatonin 3 MG Tab PO PRN (22:00)
[2020-01-30] MEDS: Enoxaparin 40 MG/0.4 ML Syringe SUBCUT SCH (08:36)
[2020-01-30] MEDS: Dexamethasone 4 MG/ML SDV IVPUSH SCH (08:37)
[2020-01-30] MEDS ORDERED: Furosemide 20 MG/2 ML VIAL IV ONE (14:00)
--- NOTE | 2020-01-30 14:03 | PCM.PN ---
- General Info Date of Service: 01/30/20 Subjective Update: Mr. Whalen continues to show slow improvement on a day-to-day basis. He has been able to be more active, still desaturates into the 80s with activity on 4 L/min via nasal cannula. At rest oxygen saturations are within desired range on 3 L of oxygen. Functional Status: Reports: Tolerating Diet, Ambulating, Urinating - Review of Systems General: Reports: Weakness, Fatigue. Denies: Fever, Chills Pulmonary: Reports: Shortness of Breath, Cough. Denies: Pleuritic Chest Pain, Sputum, Hemoptysis, Wheezing Cardiovascular: Reports: Dyspnea on Exertion. Denies: Chest Pain, Palpitations, Orthopnea, PND, Edema, Lightheadedness Gastrointestinal: Reports: No Symptoms - Patient Data Vitals - Most Recent: Last Vital Signs Temp 95.9 F L 01/30/20 11:29 Pulse 95 01/30/20 11:29 Resp 16 01/30/20 11:29 BP 110/60 01/30/20 11:29 Pulse Ox 93 L 01/30/20 13:39 Weight - Most Recent: 167 lb 0.002 oz I&O - Last 24 Hours: Intake & Output 01/29/20 01/30/20 01/30/20 22:59 06:59 14:59 Intake Total 1320 120 Output Total 675 Balance 1320 -675 120 Lab Results Last 24 Hours: Laboratory Results - last 24 hr 01/30/20 01/30/20 01/30/20 Range/Units 05:13 05:13 05:13 WBC 13.7 H (4.5-11.0) K/uL RBC 4.33 (4.30-5.90) M/uL Hgb 13.4 (12.0-15.0) g/dL Hct 40.2 (40.0-54.0) % MCV 93 (80-98) fL MCH 31 (27-31) pg MCHC 33 (32-36) % Plt Count 458 H (150-400) K/uL Add Manual Diff Yes Neutrophils % (Manual) 75 H (36-66) % Lymphocytes % (Manual) 8 L (24-44) % Monocytes % (Manual) 17 H (2-6) % D-Dimer, Quantitative 1998.55 H (0.0-500.0) ng/mL Sodium 136 L (140-148) mmol/L Potassium 4.2 (3.6-5.2) mmol/L Chloride 102 (100-108) mmol/L Carbon Dioxide 27 (21-32) mmol/L Anion Gap 11.2 (5.0-14.0) mmol/L BUN 31 H (7-18) mg/dL Creatinine 1.0 (0.8-1.3) mg/dL Est Cr Clr Drug Dosing 69.78 mL/min Estimated GFR (MDRD) > 60 (>60) Glucose 93 (74-106) mg/dL Calcium 8.7 (8.5-10.1) mg/dL Ferritin (8-388) ng/ml Total Bilirubin 0.7 (0.2-1.0) mg/dL AST 17 (15-37) U/L ALT 101 H (12-78) U/L Alkaline Phosphatase 56 (46-116) U/L C-Reactive Protein (0.0-0.3) mg/dL Total Protein 6.1 L (6.4-8.2) g/dL Albumin 2.1 L (3.4-5.0) g/dL Globulin 4.0 H (2.3-3.5) g/dL Albumin/Globulin Ratio 0.5 L (1.2-2.2) 01/30/20 Range/Units 05:13 WBC (4.5-11.0) K/uL RBC (4.30-5.90) M/uL Hgb (12.0-15.0) g/dL Hct (40.0-54.0) % MCV (80-98) fL MCH (27-31) pg MCHC (32-36) % Plt Count (150-400) K/uL Add Manual Diff Neutrophils % (Manual) (36-66) % Lymphocytes % (Manual) (24-44) % Monocytes % (Manual) (2-6) % D-Dimer, Quantitative (0.0-500.0) ng/mL Sodium (140-148) mmol/L Potassium (3.6-5.2) mmol/L Chloride (100-108) mmol/L Carbon Dioxide (21-32) mmol/L Anion Gap (5.0-14.0) mmol/L BUN (7-18) mg/dL Creatinine (0.8-1.3) mg/dL Est Cr Clr Drug Dosing mL/min Estimated GFR (MDRD) (>60) Glucose (74-106) mg/dL Calcium (8.5-10.1) mg/dL Ferritin 864 H (8-388) ng/ml Total Bilirubin (0.2-1.0) mg/dL AST (15-37) U/L ALT (12-78) U/L Alkaline Phosphatase (46-116) U/L C-Reactive Protein 1.60 H (0.0-0.3) mg/dL Total Protein (6.4-8.2) g/dL Albumin (3.4-5.0) g/dL Globulin (2.3-3.5) g/dL Albumin/Globulin Ratio (1.2-2.2) Med Orders - Current: Current Medications Acetaminophen (Tylenol) 650 mg PO Q4H PRN PRN Reason: Fever Greater Than 101 Last Admin: 01/28/20 11:47 Dose: 650 mg Documented by: Albuterol (Ventolin Hfa) 0 gm INH Q2H PRN PRN Reason: Shortness of Breath Last Admin: 01/24/20 08:38 Dose: 2 puff Documented by: Artificial Tears (Genteal Mild To Moderate Ophth Soln) 0 ml EYEBOTH Q1H PRN PRN Reason: Dry Eyes Last Admin: 01/29/20 22:00 Dose: 2 drop Documented by: Calcium Carbonate/Glycine (Tums) 500 mg PO Q2H PRN PRN Reason: Indigestion Last Admin: 01/29/20 20:26 Dose: 500 mg Documented by: Docusate Sodium (Colace) 100 mg PO BID PRN PRN Reason: Constipation Enoxaparin Sodium (Lovenox) 40 mg SUBCUT DAILY [facility] Last Admin: 01/30/20 08:36 Dose: 40 mg Documented by: Furosemide (Lasix) 20 mg IVPUSH NOW ONE Stop: 01/30/20 13:58 Lorazepam (Ativan) 0.5 mg PO Q4H PRN PRN Reason: Anxiety Melatonin (Melatonin) 9 mg PO BEDTIME PRN PRN Reason: Sleep Last Admin: 01/29/20 22:00 Dose: 9 mg Documented by: Ondansetron HCl (Zofran Odt) 4 mg PO Q6H PRN PRN Reason: Nausea able to take PO Discontinued Medications Dexamethasone (Decadron) 6 mg IVPUSH DAILY [facility] Stop: 01/30/20 09:01 Last Admin: 01/30/20 08:37 Dose: 6 mg Documented by: Diphenhydramine HCl (Benadryl) 25 mg IVPUSH ONCALL ONE Stop: 01/21/20 15:31 Last Admin: 01/21/20 15:33 Dose: 25 mg Documented by: Furosemide (Lasix) 40 mg IVPUSH ONETIME ONE Stop: 01/24/20 09:31 Last Admin: 01/24/20 09:37 Dose: 40 mg Documented by: Furosemide (Lasix) 20 mg IVPUSH NOW ONE Stop: 01/26/20 14:01 Last Admin: 01/26/20 15:36 Dose: 20 mg Documented by: Furosemide (Lasix) 20 mg IVPUSH NOW ONE Stop: 01/27/20 10:31 Last Admin: 01/27/20 11:02 Dose: 20 mg Documented by: Furosemide (Lasix) 20 mg IVPUSH NOW ONE Stop: 01/29/20 10:01 Last Admin: 01/29/20 11:04 Dose: 20 mg Documented by: Remdesivir 100 mg/ Sodium (Chloride) 100 mls @ 100 mls/hr IV Q24H [facility] Stop: 01/25/20 12:59 Last Admin: 01/25/20 11:54 Dose: 100 mls/hr Documented by: Sodium Chloride (Normal Saline) 250 mls @ 20 mls/hr IV ASDIRECTED [facility] Last Admin: 01/21/20 18:11 Dose: 20 mls/hr Documented by: Remdesivir 200 mg/ Sodium (Chloride) 250 mls @ 250 mls/hr IV ONETIME ONE Stop: 01/21/20 12:59 Last Admin: 01/21/20 12:12 Dose: 250 mls/hr Documented by: Ceftriaxone Sodium 1 gm/ (Sodium Chloride) 50 mls @ 100 mls/hr IV Q24H [facility] Last Admin: 01/22/20 23:36 Dose: 100 mls/hr Documented by: Azithromycin 500 mg/ Sodium (Chloride) 250 mls @ 250 mls/hr IV Q24H [facility] Last Admin: 01/24/20 23:21 Dose: 250 mls/hr Documented by: Ceftriaxone Sodium 1 gm/ (Sodium Chloride) 50 mls @ 100 mls/hr IV Q24H [facility] Last Admin: 01/24/20 22:49 Dose: 100 mls/hr Documented by: Ceftriaxone Sodium 1 gm/ (Sodium Chloride) 50 mls @ 600 mls/hr IV Q24H [facility] Melatonin (Melatonin) 6 mg PO BEDTIME PRN PRN Reason: Sleep Last Admin: 01/23/20 21:09 Dose: 6 mg Documented by: Polyethylene Glycol (Miralax) 34 gm PO ONETIME ONE Stop: 01/27/20 14:01 Last Admin: 01/27/20 14:08 Dose: 34 gm Documented by: Potassium Chloride (Klor-Con M20) 40 meq PO ONETIME ONE Stop: 01/25/20 10:01 Last Admin: 01/25/20 11:59 Dose: 40 meq Documented by: - Exam Quality Assessment: Supplemental Oxygen, DVT Prophylaxis General: Alert, Oriented, Cooperative, Mild Distress Lungs: Normal Respiratory Effort, Rales. No: Rhonchi, Wheezing Cardiovascular: Regular Rate, Regular Rhythm, No Murmurs GI/Abdominal Exam: Soft, Non-Tender, No Organomegaly, No Distention Extremities: Non-Tender, No Pedal Edema Sepsis Event Note - Evaluation Sepsis Screening Result: No Definite Risk - Focused Exam Vital Signs: Vital Signs Temp Pulse Resp BP Pulse Ox 01/30/20 13:39 93 L 01/30/20 11:29 95.9 F L 95 16 110/60 94 L 01/30/20 07:51 97.2 F 67 16 107/55 L 90 L 01/30/20 07:34 94 L 01/30/20 04:51 97 F 61 16 115/61 91 L - Problem List Review Problem List Initiated/Reviewed/Updated: Yes - My Orders Last 24 Hours: My Active Orders 01/30/20 13:57 Furosemide [Lasix] 20 mg IVPUSH NOW ONE 01/31/20 05:00 BASIC METABOLIC PANEL,BMP [CHEM] Timed - Plan Plan:: Assessment and Plan Acute respiratory failure-secondary COVID-19 with bilateral pneumonia. Further good improvement in oxygenation over the last 24 hours -Continue supplemental oxygen COVID 19 PNA-slow improvement in symptoms over the past few days -Dexamethasone 6 mg IV q day x 10 days (day 12/25) -Remdesivir completed a 5-day course -Completed a 3-day course of convalescent serum -elevated white count is likely secondary to the dexamethasone -Oxygen to keep SpO2 between 90-96% Disposition: Plan for discharged home in 2 to 3 days
[2020-01-30] MEDS: Hypromellose 0.3% Ophth Soln 15 ML Bottle EYEBOTH PRN ×2 (20:00→22:06)
[2020-01-30] MEDS: Melatonin 3 MG Tab PO PRN (21:59)
[2020-01-30] MEDS: Magnesium Oxide 400 MG Tab PO SCH (21:59)
[2020-01-31] MEDS: Acetaminophen 325 MG Tab PO PRN (05:42)
[2020-01-31] MEDS: Enoxaparin 40 MG/0.4 ML Syringe SUBCUT SCH (09:39)
[2020-01-31] MEDS: Magnesium Oxide 400 MG Tab PO SCH ×2 (09:39→14:29)
[2020-01-31 11:03] VITALS: BP 115/63; PULSE 89
--- NOTE | 2020-01-31 11:19 | PCM.DCSUM1 ---
Discharge Summary - Hospital Course Brief History: Mr. Whalen is a 74-year-old gentleman who was admitted through the emergency department with weakness, shortness of breath, cough, hypoxia, secondary to COVID-19 and bilateral pneumonia. - Discharge Data Discharge Date: 01/31/20 Discharge Disposition: Home, Self-Care 01 Condition: Fair - Referral to Home Health Primary Care Physician: Kevin Leigh MD - Discharge Diagnosis/Problem(s) (1) Pneumonia due to COVID-19 virus SNOMED Code(s): 278493185320561745 ICD Code: U07.1 - COVID-19; J12.89 - OTHER VIRAL PNEUMONIA Status: Acute Current Visit: Yes (2) Weakness generalized SNOMED Code(s): 09467326 ICD Code: R53.1 - WEAKNESS Status: Acute Current Visit: Yes (3) Hypoxemia SNOMED Code(s): 462909325 ICD Code: R09.02 - HYPOXEMIA Status: Acute Current Visit: Yes - Patient Summary/Data Consults: Consultations 01/21/20 11:21 PT Evaluation and Treatment [CONS] Routine Please Evaluate and Treat. PT Reason for Consult: Strengthening This query below is only for informational purposes and is not editable. Hospital Course: Praveen Whalen is a 74 yo male admitted to [facility] Medicine service on 21 January 2020 for profound weakness in the setting of acute COVID 19 infection. The patient and his , both, have been diagnosed and have quarantined themselves over the past 14 days. While his has improved substantially, the patient himself has yet to do so. He has, rather, become progressively weaker, more dyspneic, and has had considerable cough with increased respiratory effort or talking. He has had fevers as high as 102.9 F. He has no other medical issues [employer] that are noted. No history of HTN, CAD, COPD, DM, obesity are noted. The patient does note, in addition to the above, some occasional loose stool as well as loss of taste and/or smell. On admission he was started on usual therapy for COVID-19 including; dexamethasone, remdesivir, and co nvalescent plasma. After admission he did develop progressive respiratory compromise and worsening cough. As his respiratory compromise worsened he required increasing levels of supplemental oxygen to maintain adequate saturations. At one point he was up to 15 L/min high flow nasal cannula. He slowly improved over the last several days of hospitalization and by the time of discharge was no longer requiring supplemental oxygen. He was treated with DVT prophylaxis enoxaparin 40 mg subcu daily. By the time of discharge she had completed a full course of remdesivir, convalescent plasma, and dexamethasone. Overall energy level had improved as well as appetite. Activity will be as tolerated and he will resume his usual diet. Follow-up appointment will be scheduled with his primary care provider within 1 week. - Patient Instructions Diet: Usual Diet as Tolerated Activity: As Tolerated Other/Special Instructions: Please schedule follow-up appointment with primary care provider within 1 week. - Discharge Plan *PRESCRIPTION DRUG MONITORING PROGRAM REVIEWED*: Not Applicable *COPY OF PRESCRIPTION DRUG MONITORING REPORT IN PATIENT JEANNA: Not Applicable Home Medications: Home Meds Cholecalciferol (Vitamin D3) [Vitamin D3] 0.025 mcg PO DAILY 12/19/16 [History] Magnesium Oxide [Magnesium] 400 mg PO DAILY 09/24/19 [History] Referrals: Kevin Leigh MD [Primary Care Provider] - 02/04/20 10:00 am (Your appaointment is a video appointment through your [employer] Chart. Please log into your [employer] 15 minutes prior to appoinment.) - Discharge Summary/Plan Comment DC Time >30 min.: No - Patient Data Vitals - Most Recent: Last Vital Signs Temp 96.9 F 01/31/20 11:00 Pulse 89 01/31/20 11:00 Resp 16 01/31/20 11:00 BP 115/63 01/31/20 11:00 Pulse Ox 92 L 01/31/20 11:00 Weight - Most Recent: 167 lb 0.002 oz I&O - Last 24 hours: Intake & Output 01/30/20 01/31/20 01/31/20 22:59 06:59 14:59 Intake Total 600 Output Total 400 Balance 200 Lab Results - Last 24 hrs: Laboratory Results - last 24 hr 01/31/20 Range/Units 05:00 Sodium 136 L (140-148) mmol/L Potassium 3.9 (3.6-5.2) mmol/L Chloride 102 (100-108) mmol/L Carbon Dioxide 26 (21-32) mmol/L Anion Gap 11.9 (5.0-14.0) mmol/L BUN 33 H (7-18) mg/dL Creatinine 1.0 (0.8-1.3) mg/dL Est Cr Clr Drug Dosing 69.78 mL/min Estimated GFR (MDRD) > 60 (>60) Glucose 109 H (74-106) mg/dL Calcium 8.7 (8.5-10.1) mg/dL Med Orders - Current: Current Medications Acetaminophen (Tylenol) 650 mg PO Q4H PRN PRN Reason: Fever Greater Than 101 Last Admin: 01/31/20 05:42 Dose: 650 mg Documented by: Albuterol (Ventolin Hfa) 0 gm INH Q2H PRN PRN Reason: Shortness of Breath Last Admin: 01/24/20 08:38 Dose: 2 puff Documented by: Artificial Tears (Genteal Mild To Moderate Ophth Soln) 0 ml EYEBOTH Q1H PRN PRN Reason: Dry Eyes Last Admin: 01/30/20 22:06 Dose: 2 drop Documented by: Calcium Carbonate/Glycine (Tums) 500 mg PO Q2H PRN PRN Reason: Indigestion Last Admin: 01/29/20 20:26 Dose: 500 mg Documented by: Docusate Sodium (Colace) 100 mg PO BID PRN PRN Reason: Constipation Enoxaparin Sodium (Lovenox) 40 mg SUBCUT DAILY [facility] Last Admin: 01/31/20 09:39 Dose: 40 mg Documented by: Lorazepam (Ativan) 0.5 mg PO Q4H PRN PRN Reason: Anxiety Magnesium Oxide (Magnesium Oxide) 400 mg PO BEDTIME [facility] Melatonin (Melatonin) 9 mg PO BEDTIME PRN PRN Reason: Sleep Last Admin: 01/30/20 21:59 Dose: 9 mg Documented by: Ondansetron HCl (Zofran Odt) 4 mg PO Q6H PRN PRN Reason: Nausea able to take PO Discontinued Medications Dexamethasone (Decadron) 6 mg IVPUSH DAILY [facility] Stop: 01/30/20 09:01 Last Admin: 01/30/20 08:37 Dose: 6 mg Documented by: Diphenhydramine HCl (Benadryl) 25 mg IVPUSH ONCALL ONE Stop: 01/21/20 15:31 Last Admin: 01/21/20 15:33 Dose: 25 mg Documented by: Furosemide (Lasix) 40 mg IVPUSH ONETIME ONE Stop: 01/24/20 09:31 Last Admin: 01/24/20 09:37 Dose: 40 mg Documented by: Furosemide (Lasix) 20 mg IVPUSH NOW ONE Stop: 01/26/20 14:01 Last Admin: 01/26/20 15:36 Dose: 20 mg Documented by: Furosemide (Lasix) 20 mg IVPUSH NOW ONE Stop: 01/27/20 10:31 Last Admin: 01/27/20 11:02 Dose: 20 mg Documented by: Furosemide (Lasix) 20 mg IVPUSH NOW ONE Stop: 01/29/20 10:01 Last Admin: 01/29/20 11:04 Dose: 20 mg Documented by: Furosemide (Lasix) 20 mg IV NOW ONE Stop: 01/30/20 14:01 Last Admin: 01/30/20 15:30 Dose: 20 mg Documented by: Remdesivir 100 mg/ Sodium (Chloride) 100 mls @ 100 mls/hr IV Q24H [facility] Stop: 01/25/20 12:59 Last Admin: 01/25/20 11:54 Dose: 100 mls/hr Documented by: Sodium Chloride (Normal Saline) 250 mls @ 20 mls/hr IV ASDIRECTED [facility] Last Admin: 01/21/20 18:11 Dose: 20 mls/hr Documented by: Remdesivir 200 mg/ Sodium (Chloride) 250 mls @ 250 mls/hr IV ONETIME ONE Stop: 01/21/20 12:59 Last Admin: 01/21/20 12:12 Dose: 250 mls/hr Documented by: Ceftriaxone Sodium 1 gm/ (Sodium Chloride) 50 mls @ 100 mls/hr IV Q24H [facility] Last Admin: 01/22/20 23:36 Dose: 100 mls/hr Documented by: Azithromycin 500 mg/ Sodium (Chloride) 250 mls @ 250 mls/hr IV Q24H [facility] Last Admin: 01/24/20 23:21 Dose: 250 mls/hr Documented by: Ceftriaxone Sodium 1 gm/ (Sodium Chloride) 50 mls @ 100 mls/hr IV Q24H [facility] Last Admin: 01/24/20 22:49 Dose: 100 mls/hr Documented by: Ceftriaxone Sodium 1 gm/ (Sodium Chloride) 50 mls @ 600 mls/hr IV Q24H [facility] Magnesium Oxide (Magnesium Oxide) 400 mg PO DAILY [facility] Last Admin: 01/30/20 21:59 Dose: 400 mg Documented by: Melatonin (Melatonin) 6 mg PO BEDTIME PRN PRN Reason: Sleep Last Admin: 01/23/20 21:09 Dose: 6 mg Documented by: Polyethylene Glycol (Miralax) 34 gm PO ONETIME ONE Stop: 01/27/20 14:01 Last Admin: 01/27/20 14:08 Dose: 34 gm Documented by: Potassium Chloride (Klor-Con M20) 40 meq PO ONETIME ONE Stop: 01/25/20 10:01 Last Admin: 01/25/20 11:59 Dose: 40 meq Documented by: - Exam General: Reports: Alert, Oriented, Cooperative, No Acute Distress Lungs: Reports: Clear to Auscultation, Normal Respiratory Effort Cardiovascular: Reports: Regular Rate, Regular Rhythm, No Murmurs GI/Abdominal Exam: Soft, Non-Tender, No Organomegaly, No Distention Extremities: Non-Tender, No Pedal Edema
[2020-01-31] MEDS ORDERED: FLU Vacc QV2020-21(65YR UP)/PF 240 MCG/0.7 ML Syringe IM ONE (13:30)
[2020-01-31] MEDS ORDERED: Magnesium Oxide 400 MG Tab PO SCH (21:00)
== END 2020-01-31 15:05 | disposition home or self-care (01) | DRG 177 ==
LOC: JP.ED 09:43 → JP.2SS 11:23
PROVIDERS: ADMIT Family Medicine; ATTEND Hospitalist
PROC: 8E0ZXY6 Isolation (ICD-10-PCS; principal; 2020-01-21)
PROC: XW033E5 Introduction of Remdesivir Anti-infective into Peripheral Vein, Percutaneous Approach, New Technology Group 5 (ICD-10-PCS; 2020-01-21)
PROC: XW13325 Transfusion of Convalescent Plasma (Nonautologous) into Peripheral Vein, Percutaneous Approach, New Technology Group 5 (ICD-10-PCS; 2020-01-21)
PROC: 5A0945A Assistance with Respiratory Ventilation, 24-96 Consecutive Hours, High Flow/Velocity Cannula (ICD-10-PCS; 2020-01-29)
PROC: 3E02340 Introduction of Influenza Vaccine into Muscle, Percutaneous Approach (ICD-10-PCS; 2020-01-31)
DX: U07.1 COVID-19 (principal); J12.89 Other viral pneumonia; R06.02 Shortness of breath; R53.1 Weakness; J96.01 Acute respiratory failure with hypoxia; J30.9 Allergic rhinitis, unspecified; H54.7 Unspecified visual loss; Z88.0 Allergy status to penicillin; Z79.899 Other long term (current) drug therapy; Z87.442 Personal history of urinary calculi; Z23 Encounter for immunization
CPT/HCPCS: 36415; 36430; 71045; 71045-26; 80048; 80053; 82728; 83605; 84145; 85025; 85379; 86140; 86900; 86901; 87040; 87077; 87186; 87804; 87804-59; 90662; 94640; 94762; 97110-GP; 97140-GP; 97162-GP; 97530-GP; 97535-GP; 99285; 99285-25; A9270-GY; J0456; J0696; J1100; J1200; J1650; J1940; J7050; P9017

== ENCOUNTER 2022-07-13 06:39 | Day surgery (SDC) | payer MEDICARE, OTHER ==
[2022-07-13] MEDS ORDERED: Propofol 200 MG/20 ML SDV ONE (07:18)
[2022-07-13] MEDS ORDERED: fentaNYL 100 MCG/2 ML SDV ONE (07:19)
[2022-07-13] MEDS ORDERED: Sodium Chloride 0.9% 1,000 ML IV SCH (07:45)
[2022-07-13 09:28] VITALS: BP 112/56; PULSE 60
== END 2022-07-13 09:36 | disposition home or self-care (01) ==
LOC: JP.SDS 06:39
PROVIDERS: ATTEND Surgery
DX: Z12.11 Encounter for screening for malignant neoplasm of colon (principal); K57.30 Diverticulosis of large intestine without perforation or abscess without bleeding; Z86.010 Personal history of colon polyps; Z79.899 Other long term (current) drug therapy; Z95.5 Presence of coronary angioplasty implant and graft; Z88.0 Allergy status to penicillin
CPT/HCPCS: G0105; J2704; J3010; J7030